=== PATIENT | female | born 1960 | race Caucasian/White ===

== ENCOUNTER 2018-05-18 13:21 | Emergency (ER) | payer MEDICAID, SELFPAY ==
[2018-05-18 13:23] VITALS: BP 141/83; PULSE 96; RESP 16; TEMP 36.9; O2SAT 98; BMI 14.8
--- NOTE | 2018-05-18 13:30 | ED.VISSUMM ---
- ER Visit Summary Date of Service: 05/18/18 Chief Complaint: Palpitations, nausea shortness of breath History of Present Illness: The patient is a 57 F who presents because of anxiety. She reported palpitations, shortness breath nausea. Symptoms are worse prior to presentation. She took half of a diazepam tablet. She thought of taking a second. When asked if she has been sad she began to cry and states she has been depressed for a while. She has had unintentional weight loss which may be secondary to depression or other causes. She also reports poor p.o. intake. She reports trouble with sleep, as well. Patient denies any ocular, visual or auditory symptoms. Patient denies any chest pain. She does have a nonproductive cough which is chronic. She denies any abdominal pain. She denies any urologic symptoms. She states she is always been thin and tiny. When asked how much she smoked she responded too much . Physical Examination: Thin woman with elevated blood pressure of 141/83. She has a depressed affect. She is tearful. She admits she is depressed. HEENT exam unremarkable. Heart is regular without murmur, gallop or rub lungs are clear. Abdomen soft nontender. She is alert she is oriented with a nonfocal neurologic exam. Test Results: CBC and CMP are unremarkable. Emergency Department Course and Treatment: Because she is smoker with unintentional weight loss will obtain screening blood work. Believe this to be secondary to depression. She is presently on no antidepressant. She is not under the care of a psychiatrist. Treatment Plan: Prescription for antidepressant Disposition: Discharge Impression: 1. Depression 2. Anxiety reaction 3. Unintentional weight loss 4. Tobacco abuse This note was generated with [employer] dictation software. It may contain incorrect words, spelling, and punctuation that were not noted in review of the chart prior to signing ED Disposition - Plan for ED Patient: Disposition: Home or Assisted Living Chief Complaint: Anxiety Instructions: ED Depression, ED Stress React Prescriptions: Sertraline HCl [Zoloft] 12.5 mg PO QHS #30 tab Referrals: Smith Espinosa Chi, MD [Primary Care Provider] - 1-2 Weeks Counseling,Center [GROUP OF PHYSICIANS] - 1-2 Weeks
[2018-05-18 14:09] LABS: Absolute Lymphocyte Count 2.03 X10^3/ul (0.83-4.51); Absolute Neutrophil Count 4.1 X10^3/uL (2.0-7.7); Basophil# 0.02 X10^3/uL; Basophil% 0.3 % (0-1); Eosinophil# 0.02 X10^3/uL; Eosinophils% 0.3 % (0-5); Hematocrit 40.7 % (37-47); Hemoglobin 13.6 g/dl (12.0-15.0); Lymphocyte # 2.03 X10^3/ul (4.0); Lymphocyte % 30.2 % (19-41); Mean Corp Hgb Conc 33.4 g/gl (32-36); Mean Corpuscular Hgb 31.8 pg (27.0-32.0); Mean Corpuscular Volume 95.1 fL (81-99); Mean Platelet Vol. 10.1 fl (6.2-12.0); Monocyte# 0.57 X10^3/uL; Monocyte% 8.5 % (0-10); Neutrophil # 4.08 X10^3/uL (2.7-7.7); Neutrophil % 60.7 % (47-70); Platelet Count 269 K/mm3 (150-450); RBC Distribution Width CV 12.8 % (11.6-14.6); RBC Distribution Width SD 44.5 fl (35.1-43.9); Red Blood Count 4.28 M/mm3 (4.2-5.4); White Blood Count 6.7 K/mm3 (4.4-11.0)
[2018-05-18 14:10] LABS: POSITIVE COUNT NO; POSITIVE DIFFERENTIAL NO; POSITIVE MORPHOLOGY NO
[2018-05-18 14:25] LABS: BUN 11 mg/dL (7-18); BUN/Creat Ratio 13.5 RATIO (10-20); Creatinine, Serum 0.81 mg/dL (0.55-1.02); EST Glomerular Filtration Rate 77 mL/min (>60); Est Glom Filt Rate - Afr Amer 94 mL/min (>60); Estimated Creatinine Clearance 49.93 ml/min; Glucose 96 mg/dL (74-106); Protein, Total 7.4 g/dL (6.4-8.2)
[2018-05-18 14:26] LABS: ALB/GLOB Ratio 1.2 RATIO (0.9-2.4); AST(SGOT) 18 U/L (15-37); Alanine Aminotransfer ALT/SGPT 26 U/L (13-56); Alkaline Phosphatase 51 U/L (45-117); Anion Gap 5 (5-15); Calcium,Total 9.1 mg/dL (8.5-10.1); Chloride 109 mmol/L (98-107); Globulin 3.4 g/dL (2.2-4.2); Sodium Level 142 mmol/L (136-145)
[2018-05-18 15:12] VITALS: BP 112/70; PULSE 72; RESP 15; O2SAT 98
== END 2018-05-18 15:12 | disposition home or self-care (01) ==
PROVIDERS: Emergency Provider Emergency Medicine; Family Provider Family Medicine Geriatric Medicine; PCP Family Medicine Geriatric Medicine
DX: F32.9 Major depressive disorder, single episode, unspecified (principal); F41.1 Generalized anxiety disorder; R63.4 Abnormal weight loss; F17.200 Nicotine dependence, unspecified, uncomplicated; Z79.899 Other long term (current) drug therapy
CPT/HCPCS: 80053; 85025; 99285

== ENCOUNTER 2018-06-17 14:53 | Emergency (ER) | payer MEDICAID, SELFPAY ==
[2018-06-17 14:54] VITALS: BP 115/76; PULSE 85; RESP 16; TEMP 36.5; O2SAT 98; BMI 16.9
--- NOTE | 2018-06-17 15:09 | RAD_ITS ---
STUDY: X-RAY - RIGHT HAND, ATTENTION INDEX FINGER REASON FOR EXAM: Female, 57 years old. Injury to the tip of the index finger. TECHNIQUE: 3 view(s) of the finger were obtained. COMPARISON: None. FINDINGS: Normal metacarpal head. Normal metacarpophalangeal joint. Normal proximal phalanx. Normal middle phalanx. Normal distal phalanx. Normal proximal interphalangeal joint. Normal distal interphalangeal joint. Soft tissue injury overlying the tuft of the distal phalanx of the index finger. RAD/Finger(s) Min 2 Views IMPRESSION: Soft tissue injury overlying the tuft of the distal phalanx of the index finger. Electronically Signed: Ayo Gruber MD at 15:33 EDT Tel [phone], Service support ,
--- NOTE | 2018-06-17 15:13 | ED.DCSUM_ITS ---
- ER Visit Summary Date of Service: 06/17/18 Chief Complaint: Right index finger injury History of Present Illness: The patient is a 57 F who got her right index finger crushed by a tailgate just prior to arrival. Unknown last tetanus. Physical Examination: Afebrile vital signs stable Gen: Well-nourished well-developed Head: Normocephalic atraumatic Eyes: Perrl EOMI ENT: TMs clear no rhinorrhea moist mucous membranes Neck: Supple no lymphadenopathy no JVD nontender CVS: Regular rate rhythm no murmurs normal S1-S2 Respiratory: No distress clear to auscultation bilaterally chest nontender Abdomen: Soft nontender nondistended normal bowel sounds no masses Back: Nontender Extremity: Laceration noted to the lateral aspect of the distal right index finger. Neurovascular intact. No active bleeding. No subungual hematoma Skin: Normal color no rash Neuro: alert orientated ?3 CN II-XII intact normal strength sensation reflexes gait cerebellar Psych: Normal affect normal mood Test Results: Finger x-rays were obtained. No fracture seen. Emergency Department Course and Treatment: During the initial history and physical exam the patient underwent digital block using 1% lidocaine using a standard volar approach. Once adequate anesthesia was achieved the wound was washed with Shur-Clens and explored. It was closed using a total of 2 simple interrupted 4-0 Ethilon sutures. Wound dressed with bacitracin and Band-Aid. Follow-up will be in 10 days for suture removal. Impression: 1. Crush injury right index finger 2. 1 cm finger laceration with repair 3. Tetanus update This note was generated with [employer] dictation software. It may contain incorrect words, spelling, and punctuation that were not noted in review of the chart prior to signing ED Disposition - Plan for ED Patient: Disposition: Home or Assisted Living Chief Complaint: Laceration Instructions: ED Laceration Hand Referrals: Smith Espinosa Chi, MD [Primary Care Provider] - 10 Day for suture removal
[2018-06-17] MEDS: Diphth,Pertuss(Acell),Tet Vac 0.5 ML Vial IM (15:40)
[2018-06-17 15:59] VITALS: RESP 12
== END 2018-06-17 16:00 | disposition home or self-care (01) ==
LOC: ED 15:48
PROVIDERS: Emergency Provider Emergency Medicine; Family Provider Family Medicine Geriatric Medicine; PCP Family Medicine Geriatric Medicine
DX: S61.210A Laceration without foreign body of right index finger without damage to nail, initial encounter (principal); Z23 Encounter for immunization; F32.9 Major depressive disorder, single episode, unspecified; Z72.0 Tobacco use; Z79.899 Other long term (current) drug therapy; W23.0XXA Caught, crushed, jammed, or pinched between moving objects, initial encounter; Y93.89 Activity, other specified; Y92.89 Other specified places as the place of occurrence of the external cause; Y99.8 Other external cause status
CPT/HCPCS: 12001; 73140; 90471; 90715; 99283

== ENCOUNTER → 2018-07-28 13:42 | Outpatient (CLI) | payer MEDICAID, SELFPAY ==
[2018-07-28 16:41] LABS: Absolute Lymphocyte Count 2.11 X10^3/ul (0.83-4.51); Basophil# 0.04 X10^3/uL; Basophil% 0.6 % (0-1); Eosinophil# 0.01 X10^3/uL; Eosinophils% 0.1 % (0-5); Hematocrit 42.5 % (37-47); Hemoglobin 14.4 g/dl (12.0-15.0); Lymphocyte # 2.11 X10^3/ul (4.0); Lymphocyte % 29.8 % (19-41); Mean Corp Hgb Conc 33.9 g/gl (32-36); Mean Corpuscular Hgb 32.9 pg (27.0-32.0); Mean Platelet Vol. 12.6 fl (6.2-12.0); Monocyte# 0.88 X10^3/uL; Monocyte% 12.4 % (0-10); Neutrophil # 4.02 X10^3/uL (2.7-7.7); Platelet Count 234 K/mm3 (150-450); RBC Distribution Width CV 13.3 % (11.6-14.6); RBC Distribution Width SD 46.4 fl (35.1-43.9); Red Blood Count 4.38 M/mm3 (4.2-5.4); White Blood Count 7.1 K/mm3 (4.4-11.0)
[2018-07-28 16:47] LABS: POSITIVE COUNT NO; POSITIVE DIFFERENTIAL NO; POSITIVE MORPHOLOGY NO
[2018-07-28 17:03] LABS: ALB/GLOB Ratio 1.1 RATIO (0.9-2.4); AST(SGOT) 20 U/L (15-37); Alanine Aminotransfer ALT/SGPT 30 U/L (13-56); Alkaline Phosphatase 52 U/L (45-117); Anion Gap 9 (5-15); BUN 13 mg/dL (7-18); BUN/Creat Ratio 17.4 RATIO (10-20); Calcium,Total 9.1 mg/dL (8.5-10.1); Chloride 104 mmol/L (98-107); Creatinine, Serum 0.75 mg/dL (0.55-1.02); EST Glomerular Filtration Rate 85 mL/min (>60); Est Glom Filt Rate - Afr Amer 103 mL/min (>60); Globulin 3.7 g/dL (2.2-4.2); Glucose 93 mg/dL (74-106); Potassium 3.9 mmol/L (3.5-5.1); Protein, Total 7.7 g/dL (6.4-8.2); Sodium Level 140 mmol/L (136-145); Thyroid Stim Hormone (TSH) 1.46 uIU/mL (0.358-3.74)
[2018-08-01 11:53] LABS: Hep C Antibodies <0.1 s/co ratio (0.0-0.9)
== END ==
PROVIDERS: Visit Provider Family Medicine Geriatric Medicine
DX: R53.83 Other fatigue (principal); Z13.89 Encounter for screening for other disorder
CPT/HCPCS: 36415; 80053; 84443; 85025; 86803

== ENCOUNTER → 2019-02-21 | Outpatient (CLI) | payer MEDICAID, SELFPAY ==
[2019-02-21 17:30] LABS: Absolute Neutrophil Count 3.5 X10^3/uL (2.0-7.7); Basophil# 0.01 X10^3/uL; Basophil% 0.2 % (0-1); Eosinophil# 0.03 X10^3/uL; Eosinophils% 0.5 % (0-5); Hematocrit 39.7 % (37-47); Hemoglobin 13.4 g/dl (12.0-15.0); Mean Corp Hgb Conc 33.8 g/gl (32-36); Mean Corpuscular Hgb 31.3 pg (27.0-32.0); Mean Corpuscular Volume 92.8 fL (81-99); Monocyte% 10.5 % (0-10); Neutrophil # 3.51 X10^3/uL (2.7-7.7); Neutrophil % 52.6 % (47-70); Platelet Count 254 K/mm3 (150-450); RBC Distribution Width CV 12.6 % (11.6-14.6); RBC Distribution Width SD 41.6 fl (35.1-43.9); Red Blood Count 4.28 M/mm3 (4.2-5.4); White Blood Count 6.7 K/mm3 (4.4-11.0)
[2019-02-21 17:35] LABS: POSITIVE COUNT NO; POSITIVE DIFFERENTIAL NO; POSITIVE MORPHOLOGY NO
[2019-02-21 17:47] LABS: Vitamin D,25 Hydroxy 18.5 ng/mL (29.95-100.01)
[2019-02-21 17:57] LABS: AST(SGOT) 17 U/L (15-37); Alanine Aminotransfer ALT/SGPT 20 U/L (13-56); Albumin, Serum 3.7 g/dL (3.2-5.0); Alkaline Phosphatase 56 U/L (45-117); Anion Gap 6 (5-15); BUN 19 mg/dL (7-18); BUN/Creat Ratio 24.8 RATIO (10-20); Calcium,Total 8.8 mg/dL (8.5-10.1); Chloride 107 mmol/L (98-107); Creatinine, Serum 0.77 mg/dL (0.55-1.02); EST Glomerular Filtration Rate 83 mL/min (>60); Est Glom Filt Rate - Afr Amer 100 mL/min (>60); Globulin 3.7 g/dL (2.2-4.2); Glucose 92 mg/dL (74-106); Protein, Total 7.4 g/dL (6.4-8.2); Sodium Level 139 mmol/L (136-145)
== END | disposition home or self-care (01) ==
LOC: POLAB3 13:33
PROVIDERS: Family Provider Family Medicine Geriatric Medicine; PCP Family Medicine Geriatric Medicine; Visit Provider Family Medicine Geriatric Medicine
DX: E55.9 Vitamin D deficiency, unspecified (principal); R53.83 Other fatigue
CPT/HCPCS: 36415; 80053; 82306; 84443; 85025

== ENCOUNTER → 2019-03-29 | Outpatient (CLI) | payer MEDICAID, SELFPAY ==
[2019-03-29 10:48] VITALS: BMI 16.9
--- NOTE | 2019-03-29 11:17 | BI_ITS ---
MAMMOGRAPHY - BILATERAL SCREENING REASON FOR EXAM: Female, 58 years old. Routine annual screening examination. PERTINENT HISTORY: Aunt with breast cancer. TECHNIQUE: Digital bilateral breast chris (3D mammographic acquisition) in the CC and MLO projections. 2-D mediolateral oblique (MLO) and craniocaudad (CC) views of both breasts were obtained. CAD: Full Field Digital Mammography with Computer Added Detection was performed. COMPARISON: Comparison is made with prior outside examination dated January 04, 2017. FINDINGS: Breast Composition: There are scattered areas of fibroglandular density. There are no dominant masses or suspicious calcifications. There now is evidence of a 9.4 mm left axillary nodule most likely representing a small lymph node. Correlation with ultrasound is recommended. No other significant abnormalities are identified. BI/SCREEN MAMM (CAD) W/CHRIS BILAT IMPRESSION: 9.4 mm well-defined nodule in the left axillary region. Correlation with ultrasound is recommended. ASSESSMENT CATEGORY: BIRADS Category 0: Incomplete. Need additional imaging evaluation. A letter regarding these results will be sent to the patient by the facility within 30 days. Approximately 10% of breast cancers are not detected by mammography. A normal mammogram should not delay biopsy of a clinically suspicious abnormality. [id number] Electronically Signed: Ayo Gruber, at 12:49 EDT , Service support ,
[2019-04-14 11:57] LABS: HPV APTIMA, High Risk Negative (Negative)
== END | disposition home or self-care (01) ==
PROVIDERS: Family Provider Family Medicine Geriatric Medicine; PCP Family Medicine Geriatric Medicine; Referring Provider Obstetrics & Gynecology; Visit Provider Obstetrics & Gynecology
DX: Z12.4 Encounter for screening for malignant neoplasm of cervix (principal); Z12.31 Encounter for screening mammogram for malignant neoplasm of breast
CPT/HCPCS: 77063; 77067; 87624; 88175; G0145

== ENCOUNTER → 2019-03-31 | Outpatient (CLI) | payer MEDICAID, SELFPAY ==
[2019-03-29 10:48] VITALS: BMI 16.9
--- NOTE | 2019-03-31 09:57 | US_ITS ---
STUDY: ULTRASOUND BREAST - LEFT REASON FOR EXAM: Female, 58 years old. Abnormal screening mammogram. TECHNIQUE: Axial and longitudinal images of the LEFT breast were performed with a high resolution ultrasound transducer. COMPARISON: Comparison is made with prior mammogram dated March 29, 2019. FINDINGS: LEFT Breast: There is a 1.8 cm x 0.8 cm x 0.8 cm well-defined hypoechoic nodule with a central hilum of increased echotexture suggestive of a lymph node. US/Breast Limited Unilateral IMPRESSION: Sonographic findings correspond to a benign-appearing lymph node. Routine mammographic follow-up is recommended. ASSESSMENT CATEGORY: BIRADS Category 2: Benign. A letter regarding these results will be sent to the patient by the facility within 30 days. Electronically Signed: Ayo Gruber, at 13:19 EDT , Service support ,
== END | disposition home or self-care (01) ==
LOC: OPUS 09:54
PROVIDERS: Family Provider Family Medicine Geriatric Medicine; PCP Family Medicine Geriatric Medicine; Referring Provider Obstetrics & Gynecology; Visit Provider Obstetrics & Gynecology
DX: R92.8 Other abnormal and inconclusive findings on diagnostic imaging of breast (principal)
CPT/HCPCS: 76642

== ENCOUNTER → 2019-08-01 | Outpatient (CLI) | payer MEDICAID, SELFPAY ==
[2019-08-01 17:56] LABS: Absolute Lymphocyte Count 2.31 X10^3/uL (0.83-4.51); Absolute Neutrophil Count 5.4 X10^3/uL (2.0-7.7); Basophil# 0.03 X10^3/uL; Basophil% 0.4 % (0-1); Eosinophil# 0.01 X10^3/uL; Eosinophils% 0.1 % (0-5); Hematocrit 40.5 % (37-47); Hemoglobin 13.2 g/dL (12.0-15.0); Lymphocyte # 2.31 X10^3/ul (4.0); Lymphocyte % 28.2 % (19-41); Mean Corp Hgb Conc 32.6 g/dL (32-36); Mean Corpuscular Hgb 31.1 pg (27.0-32.0); Mean Corpuscular Volume 95.3 fL (81-99); Monocyte# 0.46 X10^3/uL; Monocyte% 5.6 % (0-10); NRBC Flagged by Analyzer 0 % (0-5); Neutrophil # 5.37 X10^3/uL (2.7-7.7); Neutrophil % 65.5 % (47-70); Platelet Count 242 K/mm3 (150-450); RBC Distribution Width SD 45.1 fl (35.1-43.9); Red Blood Count 4.25 M/mm3 (4.2-5.4); White Blood Count 8.2 K/mm3 (4.4-11.0)
[2019-08-01 18:11] LABS: ALB/GLOB Ratio 1.1 RATIO (0.9-2.4); AST(SGOT) 16 U/L (15-37); Alanine Aminotransfer ALT/SGPT 16 U/L (13-56); Alkaline Phosphatase 56 U/L (45-117); Anion Gap 8 (5-15); BUN 14 mg/dL (7-18); BUN/Creat Ratio 17.7 RATIO (10-20); Chloride 105 mmol/L (98-107); Creatinine, Serum 0.79 mg/dL (0.55-1.02); EST Glomerular Filtration Rate 79 mL/min (>60); Est Glom Filt Rate - Afr Amer 96 mL/min (>60); Globulin 3.6 g/dL (2.2-4.2); Glucose 97 mg/dL (74-106); Potassium 3.6 mmol/L (3.5-5.1); Protein, Total 7.6 g/dL (6.4-8.2); Sodium Level 139 mmol/L (136-145); Thyroid Stim Hormone (TSH) 1.14 uIU/mL (0.358-3.74)
== END | disposition home or self-care (01) ==
LOC: POLAB3 15:57
PROVIDERS: Visit Provider Family Medicine Geriatric Medicine
DX: R53.83 Other fatigue (principal)
CPT/HCPCS: 36415; 80053; 84443; 85025

== ENCOUNTER 2019-09-23 13:50 | Emergency (ER) | payer MEDICAID, SELFPAY ==
[2019-03-29 10:48] VITALS: BMI 16.9
[2019-09-23 13:51] VITALS: BP 132/105; PULSE 130; RESP 24; TEMP 36.7; BMI 18.5
--- NOTE | 2019-09-23 14:11 | ED.DCSUM_ITS ---
History of Present Illness Chief Complaint: Other, Pain/Inj Detail of Chief Complaint: Rectal pain due to hemorrhoids Informant: Patient, Significant Other Onset: Days - Past several days Context: Sudden Onset Timing: Continuous Quality: Pain Location: Anus Current Severity: Mild Maximum Severity: Severe Worsened by: Bowel movement Relieved by: Nothing Associated Symptoms: Occasionally blood on toilet paper Narrative: Patient is a 59-year-old woman who presents with rectal pain. She states she has hemorrhoids. She occasionally notices bright red blood. She has not had hard stool or diarrhea recently. She has no history of liver disease. She has no other complaints Prior similar symptoms: No Recent Illness/Hospitalization: No - Past Medical History (1) No significant past medical history Status: Acute Past Medical History - Allergies and Home Meds Allergies/Adverse Reactions: Allergies ibuprofen Allergy (Verified 09/23/19 13:51) Hives Primary Care Physician: Smith Espinosa Chi, MD [Primary Care Provider] - Prior records reviewed: Yes Surgical History: noncontributory Lives: Spouse/ Significant Other Smoking Status: Current every day smoker Alcohol: None Drugs: None Review of Systems General: Denies: Chills, Fever, Malaise, Subjective, Sweats Gastrointestinal: Denies: Abdominal pain, Nausea, Vomiting, Diarrhea, Constipation, Melena, Hematochezia Genitourinary: Denies: Dysuria, Hematuria, Frequency Musculoskeletal: Denies: Myalgias, Arthralgias, Neck pain, Back pain, Swelling, Extremity Pain, -, - Hematologic: Denies: Easy bruising, Easy bleeding Physical Exam Vital Signs/Narrative: Vital Signs Temp Pulse Resp BP 09/23/19 13:51 98.1 F 130 H 24 H 132/105 H Inital Vital Signs reviewed: Yes General: Well nourished, Well developed, - - And appears uncomfortable Head: Normocephalic, Atraumatic Eyes: Perrl, EOMI. Negative for: Pale conjunctiva, Scleral icterus ENT: Moist mucous membranes, No rhinorrhea Neck: Supple, Nontender Cardiovascular: Regular rate, Regular rhythm, No murmurs, Normal S1, Normal S2, Tachycardia Abdomen: Soft, Nontender, Nondistended, Normal bowel sounds Rectal: - - There is a cluster of hemorrhoids noted. There is no thrombosed hemorrhoid based on exam. Patient has significant pain out of proportion. Rectal exam reveals no fluctuance or warmth. Stool is brown. Back: Nontender, Normal Inspection Extremities: Nontender, No edema Skin: Normal color, No rash Neurological: Alert, Oriented x3, Cranial nerves II-XII grossly intact, Normal Strength, Normal Sensation Psychological: Normal affect, Normal Mood Diagnostic/Tx/Re-eval 09/23/19 14:34 CT Pel [Pelvis WITH IV Contrast] [CT] Stat Laboratory Results 09/23/19 09/23/19 14:53 14:53 WBC 9.7 RBC 4.66 Hgb 14.3 Hct 42.3 MCV 90.8 MCH 30.7 MCHC 33.8 RDW Std Deviation 42.5 RDW Coeff of Joe 12.9 Plt Count 266 MPV 10.8 Immature Gran % (Auto) 0.200 Neut % (Auto) 66.8 Lymph % (Auto) 26.2 Bates % (Auto) 6.3 Eos % (Auto) 0.3 Baso % (Auto) 0.2 Absolute Neuts (auto) 6.5 Absolute Lymphs (auto) 2.53 Nucleated RBC % 0 Sodium 140 Potassium 4.0 Chloride 107 Carbon Dioxide 26.0 Anion Gap 7 BUN 11 Creatinine 0.83 Estim Creat Clear Calc 52.42 Est GFR (MDRD) Af Amer 91 Est GFR (MDRD) Non-Af 76 BUN/Creatinine Ratio 13.3 Glucose 88 Calcium 9.4 CBC and basic metabolic panel are unremarkable. CT of the pelvis with IV contrast is pending. [facility] Judson Mess[facility]. - Medical Decision Making Patient with cluster of hemorrhoids causing her pain. Concern patient is ta chypneic and tachycardic. There is no fluctuance or warmth to suggest rectal abscess. Since she has seen Dr. Esparza, he was paged. Because of the severe tenderness tachycardia and tachypnea he recommended CBC and CT of the pelvis with IV contrast. This may represent a ischio-rectal abscess. Medicated with IV morphine for the pain. Patient was reassessed. Her pain is improved markedly. CBC and basic metabolic panel are normal. Patient awaiting scan. ED Disposition - Plan for ED Patient: Referrals: Smith Espinosa Chi, MD [Primary Care Provider] -
--- NOTE | 2019-09-23 14:34 | CT_ITS ---
STUDY: CT PELVIS WITH CONTRAST REASON FOR EXAM: Female, 59 years old. RECTAL PAIN RADIATION DOSAGE (If Supplied By Facility): CTDIvol = ( 17.01 ) mGy, DLP = ( 526.71 ) mGycm TECHNIQUE: Transaxial imaging of the pelvis was performed without oral contrast. IV 100mL Isovue-300 was administered intravenously. Multiplanar coronal and sagittal images were reformatted. Individualized dose optimization techniques were used for this CT. COMPARISON: None. FINDINGS: Normal urinary bladder. Normal visualized small intestine. There is colonic fecal retention of the visualized colon, particularly the rectal vault. No perirectal stranding or focal fluid collection identified. Ischio rectal fat is clear bilaterally. There is no pelvic fluid. There is no pelvic lymphadenopathy or mass lesion. Normal visualized uterus. Tubal ligation surgical clips are noted. Normal visualized pelvic arteries. Normal abdominal wall. There are diffuse degenerative changes of the visualized lumbar spine. CT/Pelvis WITH IV Contrast IMPRESSION: 1. Fecal retention within the rectal vault but no perirectal stranding or focal fluid collection. Electronically Signed: Hunter Gregory MD (Brooks) at 15:58 EST , Service support ,
[2019-09-23] MEDS: Morphine 4 MG/ML Syringe IV (14:56)
[2019-09-23 15:04] LABS: Absolute Lymphocyte Count 2.53 X10^3/uL (0.83-4.51); Absolute Neutrophil Count 6.5 X10^3/uL (2.0-7.7); Basophil# 0.02 X10^3/uL; Basophil% 0.2 % (0-1); Eosinophil# 0.03 X10^3/uL; Eosinophils% 0.3 % (0-5); Hematocrit 42.3 % (37-47); Hemoglobin 14.3 g/dL (12.0-15.0); Lymphocyte # 2.53 X10^3/ul (4.0); Lymphocyte % 26.2 % (19-41); Mean Corp Hgb Conc 33.8 g/dL (32-36); Mean Corpuscular Hgb 30.7 pg (27.0-32.0); Mean Corpuscular Volume 90.8 fL (81-99); Mean Platelet Vol. 10.8 fl (6.2-12.0); Monocyte# 0.61 X10^3/uL; Monocyte% 6.3 % (0-10); NRBC Flagged by Analyzer 0 % (0-5); Neutrophil # 6.45 X10^3/uL (2.7-7.7); Neutrophil % 66.8 % (47-70); Platelet Count 266 K/mm3 (150-450); RBC Distribution Width CV 12.9 % (11.6-14.6); RBC Distribution Width SD 42.5 fl (35.1-43.9); Red Blood Count 4.66 M/mm3 (4.2-5.4); White Blood Count 9.7 K/mm3 (4.4-11.0)
[2019-09-23 15:18] LABS: Anion Gap 7 (5-15); BUN 11 mg/dL (7-18); BUN/Creat Ratio 13.3 RATIO (10-20); Calcium,Total 9.4 mg/dL (8.5-10.1); Chloride 107 mmol/L (98-107); Creatinine, Serum 0.83 mg/dL (0.55-1.02); EST Glomerular Filtration Rate 76 mL/min (>60); Est Glom Filt Rate - Afr Amer 91 mL/min (>60); Estimated Creatinine Clearance 52.42 ml/min; Glucose 88 mg/dL (74-106); Sodium Level 140 mmol/L (136-145)
--- NOTE | 2019-09-23 16:16 | ED.DEP ---
ED Disposition - Plan for ED Patient: Instructions: Hemorrhoids Prescriptions: Docusate Sodium [Colace] 100 mg PO DAILY #20 cap Prescription Printed Referrals: Sanford Esparza MD [STAFF PHYSICIAN] -
[2019-09-23 16:32] VITALS: PULSE 80
[2019-09-23] MEDS: HYDROcodone Bitartrate/Apap 5/325 Tablet PO (16:32)
== END 2019-09-23 16:35 | disposition home or self-care (01) ==
LOC: ED 14:27
PROVIDERS: Emergency Provider Emergency Medicine; Family Provider Family Medicine Geriatric Medicine; PCP Family Medicine Geriatric Medicine
DX: K64.9 Unspecified hemorrhoids (principal); R00.0 Tachycardia, unspecified; R06.82 Tachypnea, not elsewhere classified; F17.200 Nicotine dependence, unspecified, uncomplicated; Z79.899 Other long term (current) drug therapy
CPT/HCPCS: 72193; 80048; 85025; 96374; 99283; J7030; Q9967; A4216

== ENCOUNTER → 2020-02-22 | Outpatient (CLI) | payer MEDICAID, SELFPAY ==
[2020-02-22 16:48] LABS: Absolute Lymphocyte Count 2.57 X10^3/uL (0.83-4.51); Absolute Neutrophil Count 3.8 X10^3/uL (2.0-7.7); Basophil# 0.03 X10^3/uL; Basophil% 0.4 % (0-1); Eosinophil# 0.04 X10^3/uL; Eosinophils% 0.5 % (0-5); Hemoglobin 14.1 g/dL (12.0-15.0); Lymphocyte # 2.57 X10^3/ul (4.0); Lymphocyte % 35.3 % (19-41); Mean Corp Hgb Conc 33.6 g/dL (32-36); Mean Corpuscular Hgb 31.8 pg (27.0-32.0); Mean Corpuscular Volume 94.8 fL (81-99); Mean Platelet Vol. 11.9 fl (6.2-12.0); Monocyte# 0.79 X10^3/uL; Monocyte% 10.9 % (0-10); NRBC Flagged by Analyzer 0 % (0-5); Neutrophil # 3.84 X10^3/uL (2.7-7.7); Neutrophil % 52.8 % (47-70); Platelet Count 290 K/mm3 (150-450); RBC Distribution Width CV 12.2 % (11.6-14.6); RBC Distribution Width SD 42.7 fl (35.1-43.9); Red Blood Count 4.43 M/mm3 (4.2-5.4); White Blood Count 7.3 K/mm3 (4.4-11.0)
[2020-02-22 17:26] LABS: ALB/GLOB Ratio 1.1 RATIO (0.9-2.4); AST(SGOT) 18 U/L (15-37); Alanine Aminotransfer ALT/SGPT 23 U/L (13-56); Albumin, Serum 3.9 g/dL (3.2-5.0); Alkaline Phosphatase 60 U/L (45-117); Anion Gap 7 (5-15); BUN 16 mg/dL (7-18); BUN/Creat Ratio 19.3 RATIO (10-20); Calcium,Total 9.2 mg/dL (8.5-10.1); Chloride 104 mmol/L (98-107); Creatinine, Serum 0.83 mg/dL (0.55-1.02); EST Glomerular Filtration Rate 75 mL/min (>60); Est Glom Filt Rate - Afr Amer 91 mL/min (>60); Globulin 3.7 g/dL (2.2-4.2); Glucose 85 mg/dL (74-106); Potassium 3.7 mmol/L (3.5-5.1); Protein, Total 7.6 g/dL (6.4-8.2); Sodium Level 137 mmol/L (136-145); Thyroid Stim Hormone (TSH) 1.48 uIU/mL (0.358-3.74)
== END | disposition home or self-care (01) ==
LOC: POLAB3 15:44
PROVIDERS: PCP Family Medicine Geriatric Medicine; Visit Provider Family Medicine Geriatric Medicine
DX: R53.83 Other fatigue (principal)
CPT/HCPCS: 36415; 80053; 84443; 85025

== ENCOUNTER → 2020-08-06 13:36 | Outpatient (CLI) | payer MEDICAID, SELFPAY ==
[2020-08-06 14:32] LABS: Absolute Lymphocyte Count 2.34 X10^3/uL (0.83-4.51); Absolute Neutrophil Count 5.2 X10^3/uL (2.0-7.7); Basophil# 0.03 X10^3/uL; Basophil% 0.4 % (0-1); Eosinophil# 0.02 X10^3/uL; Eosinophils% 0.2 % (0-5); Hematocrit 41.8 % (37-47); Lymphocyte # 2.34 X10^3/ul (4.0); Lymphocyte % 28.6 % (19-41); Mean Corp Hgb Conc 33.5 g/dL (32-36); Mean Corpuscular Hgb 32.3 pg (27.0-32.0); Mean Corpuscular Volume 96.5 fL (81-99); Mean Platelet Vol. 11.5 fl (6.2-12.0); Monocyte% 7.3 % (0-10); NRBC Flagged by Analyzer 0 % (0-5); Neutrophil # 5.15 X10^3/uL (2.7-7.7); Neutrophil % 63.1 % (47-70); Platelet Count 317 K/mm3 (150-450); RBC Distribution Width CV 13.2 % (11.6-14.6); Red Blood Count 4.33 M/mm3 (4.2-5.4); White Blood Count 8.2 K/mm3 (4.4-11.0)
[2020-08-06 14:45] LABS: Vitamin D,25 Hydroxy 21.7 ng/mL
[2020-08-06 14:52] LABS: AST(SGOT) 19 U/L (15-37); Alanine Aminotransfer ALT/SGPT 28 U/L (13-56); Albumin, Serum 4.1 g/dL (3.2-5.0); Alkaline Phosphatase 68 U/L (45-117); Anion Gap 5 (5-15); BUN 12 mg/dL (7-18); BUN/Creat Ratio 14.7 RATIO (10-20); Calcium,Total 9.5 mg/dL (8.5-10.1); Chloride 107 mmol/L (98-107); Creatinine, Serum 0.82 mg/dL (0.55-1.02); EST Glomerular Filtration Rate 76 mL/min (>60); Est Glom Filt Rate - Afr Amer 92 mL/min (>60); Glucose 90 mg/dL (74-106); Potassium 3.9 mmol/L (3.5-5.1); Protein, Total 8.1 g/dL (6.4-8.2); Sodium Level 140 mmol/L (136-145); Thyroid Stim Hormone (TSH) 2.21 uIU/mL (0.358-3.74)
== END ==
PROVIDERS: PCP Family Medicine Geriatric Medicine; Referring Provider Family Medicine Geriatric Medicine; Visit Provider Family Medicine Geriatric Medicine
DX: E55.9 Vitamin D deficiency, unspecified (principal); R53.83 Other fatigue
CPT/HCPCS: 36415; 80053; 82306; 84443; 85025

== ENCOUNTER → 2021-04-24 13:41 | Outpatient (CLI) | payer MEDICAID, SELFPAY ==
[2021-04-24 15:17] LABS: Absolute Lymphocyte Count 2.51 X10^3/uL (0.83-4.51); Absolute Neutrophil Count 4.4 X10^3/uL (2.0-7.7); Basophil# 0.02 X10^3/uL; Basophil% 0.3 % (0-1); Eosinophil# 0.03 X10^3/uL; Eosinophils% 0.4 % (0-5); Hematocrit 41.4 % (37-47); Hemoglobin 14.1 g/dL (12.0-15.0); Lymphocyte # 2.51 X10^3/ul (0.83-4.51); Lymphocyte % 33.1 % (19-41); Mean Corp Hgb Conc 34.1 g/dL (32-36); Mean Corpuscular Hgb 32.3 pg (27.0-32.0); Monocyte# 0.61 X10^3/uL; NRBC Flagged by Analyzer 0 % (0-5); Neutrophil # 4.41 X10^3/uL (2.7-7.7); Neutrophil % 58.1 % (47-70); Platelet Count 278 K/mm3 (150-450); RBC Distribution Width CV 12.7 % (11.6-14.6); Red Blood Count 4.36 M/mm3 (4.2-5.4); White Blood Count 7.6 K/mm3 (4.4-11.0)
[2021-04-24 16:04] LABS: ALB/GLOB Ratio 1.1 RATIO (0.9-2.4); AST(SGOT) 20 U/L (15-37); Alanine Aminotransfer ALT/SGPT 30 U/L (13-56); Alkaline Phosphatase 53 U/L (45-117); Anion Gap 7 (5-15); BUN 15 mg/dL (7-18); BUN/Creat Ratio 24.6 RATIO (10-20); Calcium,Total 9.2 mg/dL (8.5-10.1); Chloride 107 mmol/L (98-107); Creatinine, Serum 0.61 mg/dL (0.55-1.02); EST Glomerular Filtration Rate 107 mL/min (>60); Est Glom Filt Rate - Afr Amer 129 mL/min (>60); Globulin 3.5 g/dL (2.2-4.2); Glucose 90 mg/dL (74-106); Protein, Total 7.5 g/dL (6.4-8.2); Sodium Level 137 mmol/L (136-145); Thyroid Stim Hormone (TSH) 1.15 uIU/mL (0.358-3.74)
== END ==
PROVIDERS: PCP Family Medicine Geriatric Medicine; Visit Provider Family Medicine Geriatric Medicine
DX: R53.83 Other fatigue (principal)
CPT/HCPCS: 36415; 80053; 84443; 85025

== ENCOUNTER → 2022-06-22 | Outpatient (CLI) | payer MEDICAID, SELFPAY ==
[2022-06-22 12:22] LABS: Absolute Lymphocyte Count 2.52 X10^3/uL (0.83-4.51); Absolute Neutrophil Count 3.9 X10^3/uL (2.0-7.7); Basophil# 0.03 X10^3/uL; Basophil% 0.4 % (0-1); Eosinophil# 0.02 X10^3/uL; Eosinophils% 0.3 % (0-5); Hematocrit 40.4 % (37-47); Hemoglobin 13.9 g/dL (12.0-15.0); Lymphocyte # 2.52 X10^3/ul (0.83-4.51); Lymphocyte % 35.8 % (19-41); Mean Corp Hgb Conc 34.4 g/dL (32-36); Mean Corpuscular Hgb 33.2 pg (27.0-32.0); Mean Corpuscular Volume 96.4 fL (81-99); Mean Platelet Vol. 10.9 fl (6.2-12.0); Monocyte# 0.55 X10^3/uL; Monocyte% 7.8 % (0-10); NRBC Flagged by Analyzer 0 % (0-5); Neutrophil % 55.4 % (47-70); Platelet Count 292 K/mm3 (150-450); RBC Distribution Width CV 12.2 % (11.6-14.6); RBC Distribution Width SD 43.2 fl (35.1-43.9); Red Blood Count 4.19 M/mm3 (4.2-5.4)
[2022-06-22 13:04] LABS: ALB/GLOB Ratio 1.2 RATIO (0.9-2.4); AST(SGOT) 21 U/L (15-37); Alanine Aminotransfer ALT/SGPT 28 U/L (13-56); Alkaline Phosphatase 52 U/L (45-117); Anion Gap 8 (5-15); BUN 20 mg/dL (7-18); BUN/Creat Ratio 25.5 RATIO (10-20); Calcium,Total 9.8 mg/dL (8.5-10.1); Chloride 106 mmol/L (98-107); Creatinine, Serum 0.78 mg/dL (0.55-1.02); EST Glomerular Filtration Rate 80 mL/min (>60); Est Glom Filt Rate - Afr Amer 97 mL/min (>60); Globulin 3.4 g/dL (2.2-4.2); Glucose 92 mg/dL (74-106); Protein, Total 7.4 g/dL (6.4-8.2); Sodium Level 140 mmol/L (136-145); Thyroid Stim Hormone (TSH) 1.38 uIU/mL (0.358-3.74)
== END | disposition home or self-care (01) ==
LOC: POLAB3 10:06
PROVIDERS: PCP Family Medicine Geriatric Medicine; Visit Provider Family Medicine Geriatric Medicine
DX: R53.83 Other fatigue (principal)
CPT/HCPCS: 36415; 80053; 84443; 85025

== ENCOUNTER → 2022-09-02 | Outpatient (CLI) | payer MEDICAID, SELFPAY ==
[2022-09-02 17:23] LABS: Absolute Lymphocyte Count 2.67 X10^3/uL (0.83-4.51); Basophil# 0.03 X10^3/uL; Basophil% 0.4 % (0-1); Eosinophil# 0.06 X10^3/uL; Eosinophils% 0.8 % (0-5); Hematocrit 41.2 % (37-47); Hemoglobin 13.7 g/dL (12.0-15.0); Lymphocyte # 2.67 X10^3/ul (0.83-4.51); Lymphocyte % 35.7 % (19-41); Mean Corp Hgb Conc 33.3 g/dL (32-36); Mean Corpuscular Hgb 32.2 pg (27.0-32.0); Mean Corpuscular Volume 96.9 fL (81-99); Mean Platelet Vol. 11.6 fl (6.2-12.0); Monocyte# 0.69 X10^3/uL; Monocyte% 9.2 % (0-10); NRBC Flagged by Analyzer 0 % (0-5); Neutrophil % 53.5 % (47-70); Platelet Count 319 K/mm3 (150-450); RBC Distribution Width CV 12.8 % (11.6-14.6); RBC Distribution Width SD 45.8 fl (35.1-43.9); Red Blood Count 4.25 M/mm3 (4.2-5.4); White Blood Count 7.5 K/mm3 (4.4-11.0)
[2022-09-02 18:19] LABS: ALB/GLOB Ratio 1.1 RATIO (0.9-2.4); AST(SGOT) 18 U/L (15-37); Alanine Aminotransfer ALT/SGPT 27 U/L (13-56); Albumin, Serum 3.9 g/dL (3.2-5.0); Alkaline Phosphatase 61 U/L (45-117); Anion Gap 8 (5-15); BUN 17 mg/dL (7-18); BUN/Creat Ratio 23.8 RATIO (10-20); Calcium,Total 9.4 mg/dL (8.5-10.1); Chloride 104 mmol/L (98-107); Creatinine, Serum 0.71 mg/dL (0.55-1.02); EST Glomerular Filtration Rate 89 mL/min (>60); Est Glom Filt Rate - Afr Amer 107 mL/min (>60); Globulin 3.5 g/dL (2.2-4.2); Glucose 75 mg/dL (74-106); Potassium 3.4 mmol/L (3.5-5.1); Protein, Total 7.4 g/dL (6.4-8.2); Sodium Level 139 mmol/L (136-145); Thyroid Stim Hormone (TSH) 2.93 uIU/mL (0.358-3.74)
== END | disposition home or self-care (01) ==
PROVIDERS: PCP Family Medicine Geriatric Medicine; Visit Provider Family Medicine Geriatric Medicine
DX: R53.83 Other fatigue (principal)
CPT/HCPCS: 36415; 80053; 84443; 85025

== ENCOUNTER → 2023-03-22 | Outpatient (CLI) | payer MEDICAID, SELFPAY ==
[2023-03-22 13:01] LABS: Absolute Neutrophil Count 4.7 X10^3/uL (2.0-7.7); Basophil# 0.03 X10^3/uL; Basophil% 0.4 % (0-1); Eosinophil# 0.03 X10^3/uL; Eosinophils% 0.4 % (0-5); Hematocrit 40.2 % (37-47); Hemoglobin 13.5 g/dL (12.0-15.0); Lymphocyte % 27.9 % (19-41); Mean Corp Hgb Conc 33.6 g/dL (32-36); Mean Corpuscular Hgb 32.5 pg (27.0-32.0); Mean Corpuscular Volume 96.6 fL (81-99); Mean Platelet Vol. 10.3 fl (6.2-12.0); Monocyte# 0.69 X10^3/uL; Monocyte% 9.2 % (0-10); NRBC Flagged by Analyzer 0 % (0-5); Neutrophil # 4.66 X10^3/uL (2.7-7.7); Neutrophil % 61.8 % (47-70); Platelet Count 307 K/mm3 (150-450); RBC Distribution Width CV 12.6 % (11.6-14.6); RBC Distribution Width SD 45.1 fl (35.1-43.9); Red Blood Count 4.16 M/mm3 (4.2-5.4); White Blood Count 7.5 K/mm3 (4.4-11.0)
[2023-03-22 13:41] LABS: ALB/GLOB Ratio 0.9 RATIO (0.9-2.4); AST(SGOT) 18 U/L (15-37); Alanine Aminotransfer ALT/SGPT 21 U/L (13-56); Albumin, Serum 3.5 g/dL (3.2-5.0); Alkaline Phosphatase 65 U/L (45-117); Anion Gap 4 (5-15); BUN 12 mg/dL (7-18); BUN/Creat Ratio 16.5 RATIO (10-20); Calcium,Total 9.2 mg/dL (8.5-10.1); Chloride 108 mmol/L (98-107); Cholesterol 195 mg/dL (200); Creatinine, Serum 0.73 mg/dL (0.55-1.02); EST Glomerular Filtration Rate 87 mL/min (>60); Est Glom Filt Rate - Afr Amer 105 mL/min (>60); Globulin 3.9 g/dL (2.2-4.2); Glucose 89 mg/dL (74-106); High Density Lipoprotein 53 mg/dL; Protein, Total 7.4 g/dL (6.4-8.2); Sodium Level 138 mmol/L (136-145); Triglycerides 199 mg/dL; Very Low Density Lipoprotein 40 mg/dL (5-40)
== END | disposition home or self-care (01) ==
LOC: LAB 12:33
PROVIDERS: PCP Family Medicine Geriatric Medicine; Referring Provider Family Medicine Geriatric Medicine; Visit Provider Family Medicine Geriatric Medicine
DX: R53.83 Other fatigue (principal)
CPT/HCPCS: 36415; 80053; 80061; 84443; 85025

== ENCOUNTER → 2023-09-15 | Outpatient (CLI) | payer MEDICAID, SELFPAY ==
[2023-09-15 16:59] LABS: Absolute Lymphocyte Count 2.84 X10^3/uL (0.83-4.51); Absolute Neutrophil Count 4.5 X10^3/uL (2.0-7.7); Basophil# 0.03 X10^3/uL; Basophil% 0.4 % (0-1); Eosinophil# 0.06 X10^3/uL; Eosinophils% 0.7 % (0-5); Hematocrit 37.2 % (37-47); Hemoglobin 12.5 g/dL (12.0-15.0); Lymphocyte # 2.84 X10^3/ul (0.83-4.51); Lymphocyte % 35.1 % (19-41); Mean Corp Hgb Conc 33.6 g/dL (32-36); Mean Corpuscular Hgb 31.3 pg (27.0-32.0); Mean Platelet Vol. 10.7 fl (6.2-12.0); Monocyte# 0.68 X10^3/uL; Monocyte% 8.4 % (0-10); NRBC Flagged by Analyzer 0 % (0-5); Neutrophil # 4.47 X10^3/uL (2.7-7.7); Neutrophil % 55.2 % (47-70); Platelet Count 394 K/mm3 (150-450); RBC Distribution Width CV 13.1 % (11.6-14.6); RBC Distribution Width SD 44.9 fl (35.1-43.9); White Blood Count 8.1 K/mm3 (4.4-11.0)
[2023-09-15 17:21] LABS: ALB/GLOB Ratio 0.9 RATIO (0.9-2.4); AST(SGOT) 17 U/L (15-37); Alanine Aminotransfer ALT/SGPT 18 U/L (13-56); Albumin, Serum 3.5 g/dL (3.2-5.0); Alkaline Phosphatase 70 U/L (45-117); Anion Gap 6 (5-15); BUN 16 mg/dL (7-18); BUN/Creat Ratio 20.3 RATIO (10-20); Calcium,Total 9.2 mg/dL (8.5-10.1); Chloride 108 mmol/L (98-107); Cholesterol 203 mg/dL (200); Creatinine, Serum 0.79 mg/dL (0.55-1.02); EST Glomerular Filtration Rate 79 mL/min (>60); Est Glom Filt Rate - Afr Amer 95 mL/min (>60); Globulin 4.1 g/dL (2.2-4.2); Glucose 111 mg/dL (74-106); High Density Lipoprotein 47 mg/dL; Potassium 4.2 mmol/L (3.5-5.1); Protein, Total 7.6 g/dL (6.4-8.2); Sodium Level 141 mmol/L (136-145); Thyroid Stim Hormone (TSH) 1.35 uIU/mL (0.358-3.74); Triglycerides 195 mg/dL; Very Low Density Lipoprotein 39 mg/dL (5-40)
== END | disposition home or self-care (01) ==
LOC: POLAB3 15:47
PROVIDERS: PCP Family Medicine Geriatric Medicine; Visit Provider Family Medicine Geriatric Medicine
DX: R53.83 Other fatigue (principal)
CPT/HCPCS: 36415; 80053; 80061; 84443; 85025

== ENCOUNTER → 2024-04-27 | Outpatient (CLI) | payer MEDICAID, SELFPAY ==
[2024-04-27 15:07] LABS: Absolute Lymphocyte Count 2.43 X10^3/uL (0.83-4.51); Absolute Neutrophil Count 5.2 X10^3/uL (2.0-7.7); Basophil# 0.03 X10^3/uL; Basophil% 0.4 % (0-1); Eosinophil# 0.08 X10^3/uL; Eosinophils% 0.9 % (0-5); Hematocrit 39.4 % (37-47); Lymphocyte # 2.43 X10^3/ul (0.83-4.51); Lymphocyte % 28.6 % (19-41); Mean Corpuscular Hgb 30.4 pg (27.0-32.0); Mean Corpuscular Volume 92.3 fL (81-99); Mean Platelet Vol. 10.4 fl (6.2-12.0); Monocyte# 0.73 X10^3/uL; Monocyte% 8.6 % (0-10); NRBC Flagged by Analyzer 0 % (0-5); Neutrophil # 5.21 X10^3/uL (2.7-7.7); Neutrophil % 61.3 % (47-70); Platelet Count 410 K/mm3 (150-450); RBC Distribution Width CV 13.5 % (11.6-14.6); RBC Distribution Width SD 45.6 fl (35.1-43.9); Red Blood Count 4.27 M/mm3 (4.2-5.4); White Blood Count 8.5 K/mm3 (4.4-11.0)
[2024-04-27 15:51] LABS: ALB/GLOB Ratio 0.8 RATIO (0.9-2.4); AST(SGOT) 21 U/L (15-37); Alanine Aminotransfer ALT/SGPT 19 U/L (13-56); Albumin, Serum 3.6 g/dL (3.2-5.0); Alkaline Phosphatase 67 U/L (45-117); Anion Gap 6 (5-15); BUN 9 mg/dL (7-18); BUN/Creat Ratio 13.1 RATIO (10-20); Calcium,Total 9.2 mg/dL (8.5-10.1); Chloride 104 mmol/L (98-107); Cholesterol 216 mg/dL (200); Creatinine, Serum 0.69 mg/dL (0.55-1.02); EST Glomerular Filtration Rate 92 mL/min (>60); Est Glom Filt Rate - Afr Amer 111 mL/min (>60); Globulin 4.3 g/dL (2.2-4.2); Glucose 90 mg/dL (74-106); High Density Lipoprotein 58 mg/dL; Potassium 3.8 mmol/L (3.5-5.1); Protein, Total 7.9 g/dL (6.4-8.2); Sodium Level 136 mmol/L (136-145); Thyroid Stim Hormone (TSH) 2.03 uIU/mL (0.358-3.74); Triglycerides 107 mg/dL; Very Low Density Lipoprotein 21 mg/dL (5-40)
== END | disposition home or self-care (01) ==
LOC: POLAB3 14:12
PROVIDERS: PCP Family Medicine Geriatric Medicine; Visit Provider Family Medicine Geriatric Medicine
DX: R53.83 Other fatigue (principal); E78.5 Hyperlipidemia, unspecified
CPT/HCPCS: 36415; 80053; 80061; 84443; 85025

== ENCOUNTER → 2024-07-12 | Outpatient (CLI) | payer MEDICAID, SELFPAY | END | disposition home or self-care (01) | LOC: POLAB3 14:54 | PROVIDERS: PCP Family Medicine Geriatric Medicine; Visit Provider Family Medicine Geriatric Medicine | DX: R68.83 Chills (without fever) (principal) | CPT/HCPCS: 87631 ==

== ENCOUNTER 2024-08-02 07:38 | Inpatient (IN) | payer MEDICAID, SELFPAY ==
[2024-08-02] VITALS (14 sets, daily range): BP systolic 115–139; BP diastolic 67–90; PULSE 88–127; RESP 16–26; TEMP 36.4–37.1; O2SAT 92–97; BMI 15.6; BMI 16.5
--- NOTE | 2024-08-02 07:44 | EKG12_ITS ---
Test Reason : CP Blood Pressure : */* mmHG Vent. Rate : 117 BPM Atrial Rate : 117 BPM P-R Int : 128 ms QRS Dur : 78 ms QT Int : 326 ms P-R-T Axes : * -86 -76 degrees QTcB Int : 454 ms Sinus tachycardia Left axis deviation Abnormal ECG Confirmed by Abiel Dunham ([id number]), fashion editor ROBLES JACKSON ([id number]) on 08/03/2024 9:54:40 AM Referred By: Confirmed By: Abiel Dunham
[2024-08-02 08:02] LABS: Absolute Lymphocyte Count 2.13 X10^3/uL (0.83-4.51); Absolute Neutrophil Count 7.6 X10^3/uL (2.0-7.7); Basophil# 0.04 X10^3/uL; Basophil% 0.3 % (0-1); Eosinophil# 0.58 X10^3/uL; Hematocrit 38.6 % (37-47); Lymphocyte # 2.13 X10^3/ul (0.83-4.51); Lymphocyte % 18.5 % (19-41); Mean Corp Hgb Conc 33.7 g/dL (32-36); Mean Corpuscular Hgb 30.9 pg (27.0-32.0); Mean Corpuscular Volume 91.7 fL (81-99); Mean Platelet Vol. 9.8 fl (6.2-12.0); Monocyte# 1.11 X10^3/uL; Monocyte% 9.7 % (0-10); NRBC Flagged by Analyzer 0 % (0-5); Neutrophil # 7.58 X10^3/uL (2.7-7.7); Platelet Count 388 K/mm3 (150-450); RBC Distribution Width CV 13.3 % (11.6-14.6); RBC Distribution Width SD 44.3 fl (35.1-43.9); Red Blood Count 4.21 M/mm3 (4.2-5.4); White Blood Count 11.5 K/mm3 (4.4-11.0)
--- NOTE | 2024-08-02 08:05 | EX.ED.DYSGE1 ---
HPI History of Present Illness Chief Complaint: Chest Pain Narrative Narrative: Patient is a 64-year-old female with past medical history of anxiety, depression who presented to the emergency department the chief complaint of chest pain, coughing up blood. States that she had been sick for the past few days and noted that she had chest pain and start coughing up blood yesterday late evening. States that she coughed up blood approximately 3 times. Patient denies any blood thinning medications. Patient denies any history of blood clots denies any recent travel history. Patient states that several family numbers have been sick with upper respiratory symptoms but does not have any similar symptoms to her with the coughing of blood aspect. Patient states that she had been constipated for the last several days and states that she took a laxative and noted that she had a good bowel movement yesterday noted that is dark in nature. Patient denies any NSAID use and states that she is takes Tylenol for pain control. Patient states that she also took Pepto-Bismol past few days as well for an upset stomach. Patient denies any previous abdominal surgeries. Patient states that she has occasional alcohol use socially [facility] Medical History Depression Anxiety Home Medications ?Medication ?Instructions ?Recorded ?Last Taken ?Type diazepam 5 mg tablet 2.5 mg PO BID 05/18/18 06/17/18 History docusate sodium 100 mg capsule 100 mg PO DAILY #20 caps 09/23/19 Unknown Rx Allergy/AdvReac Type Severity Reaction Status Date / Time ibuprofen Allergy Hives Verified 08/02/24 07:41 Family History Father CVA (cerebral vascular accident) Myocardial infarction Mother CVA (cerebral vascular accident) Brain aneurysm Surgical History Encounter for Essure implantation History of tonsillectomy Social History Smoking Status: Current every day smoker tobacco type: cigarettes alcohol intake: current details: social substance use type: does not use and marijuana caffeine: Yes what type of physical activity do you participate in: walking seatbelt use: always do you feel safe at home: Yes additional social history: [place]- Disabled Patient stays at home ROS ROS ED ROS Narrative Constitutional: Denies any fevers, chills, headaches, lightness, dizziness Eyes: Denies change in vision double vision blurry vision Cardiovascular: Complains of chest pain as noted above denies palpitations Respiratory: Complains of coughing and coughing of blood as noted above denies shortness of breath Abdomen: Complains of some abdominal discomfort as well denies nausea vomiting diarrhea : Denies any painful urination, hematuria, polyuria Neurological: Denies numbness, weakness, tingling Musculoskeletal: Denies back pain Skin: Denies any rashes or lesions EXAM Physical Exam Narrative Exam Narrative: General: Patient lying in bed did appear to be uncomfortable Head: Atraumatic, normocephalic Eyes: PERRLA, EOMI bilateral, no conjunctival injection noted Neck: Soft, supple, trachea midline Cardiovascular: Patient tachycardic with a regular rhythm no murmurs gallops rubs noted Respiratory: Clear to auscultation bilaterally Abdomen: Soft, nondistended, tender to palpation epigastric and left upper quadrant region no rebound or guarding on exam, bowel sounds present x 4 Rectal: Stool was brown in nature no bright red blood Extremities: +5/5 strength noted in the bilateral lower extremities, radial pulses +2/4 in the bilateral per extremities Neurological: Patient following commands knew that she was at [facility] years 2023 Skin: Warm, dry, intact Const Vital Signs: 08/02/24 07:39 08/02/24 07:40 08/02/24 07:44 Temperature 97.9 F 98.8 F Temperature Source Temporal Oral Pulse Rate 127 H 111 H Respiratory Rate 24 H 22 H Respiratory Effort Blood Pressure 139/90 H 127/83 H Blood Pressure Mean 106 97 Pulse Ox 94 93 92 Oxygen Delivery Method Room Air Room Air 08/02/24 07:50 08/02/24 09:00 08/02/24 10:00 Temperature 98.4 F Temperature Source Oral Pulse Rate 93 111 H Respiratory Rate 26 H 23 H Respiratory Effort Normal Blood Pressure 124/83 H Blood Pressure Mean 96 Pulse Ox 92 94 Oxygen Delivery Method Room Air Room Air 08/02/24 10:00 08/02/24 10:20 Temperature 97.7 F L Temperature Source Pulse Rate 109 H 111 H Respiratory Rate 24 H 23 H Respiratory Effort Blood Pressure 124/83 H 124/83 H Blood Pressure Mean 96 96 Pulse Ox 94 93 Oxygen Delivery Method Room Air MDM MDM MDM Narrative Medical decision making narrative: Patient is a 64-year-old female who presented to the emergency department with chief complaint of chest pain, hemoptysis and abdominal pain. Patient will have a workup performed here on the differential diagnose includes but limited to ACS, pneumonia, bronchitis, PE, gastritis, upper GI bleed. Once workup is obtained reviewed she will be reevaluated Patient CBC reviewed and was significant leukocytosis of 1000, hemoglobin stable at 13, platelet count was noted be normal at 388. Patient sodium normal 136, potassium normal at 4, creatinine normal at 0.74. Patient's lactic acid normal at 1.1, AST and ALT were 2019 respectively with a normal total bilirubin of 0.60. Patient troponin was normal at less than 3, EKG reviewed and independently turbid by myself showed sinus tachycardia at a rate of [address] changes noted. Patient lipase normal at 33. Patient's CTA of her chest was reviewed and showed a right hilar mass with dominant mass in the right lower lobe measuring 4.5 cm x 3.6 cm. Right hilar mass as well as mediastinal adenopathy nodule seen in the right lower lobe. Diffuse emphysematous changes with bullous formation and scarring noted. Patient CT abdomen pelvis with IV contrast was reviewed and showed a 4.2 cm x 4.4 cm mass in the right lower lobe. Multiple scattered hypodense nodules throughout both lobes of the liver suggestive of diffuse metastatic deposits. Abnormal thickening of the endometrium for postmenopausal phase gynecological correlation with recommendation. Patient did not complain of any vaginal spotting has not followed up with gynecology and a significant time. At this point time do believe the patient will warrant admission to the hospital for further workup of her cancer diagnosis with metastasis. Will discuss case with hospitalist. Discussed case with Dr. Waller who will accept the patient for admission. I did sit down and have a long discussion with the patient about her results with significant other bedside. Lab Data Labs: Laboratory Results - last 24 hr 08/02/24 08/02/24 08/02/24 07:49 08:51 10:06 WBC 11.5 H RBC 4.21 Hgb 13.0 Hct 38.6 MCV 91.7 MCH 30.9 MCHC 33.7 RDW Std Deviation 44.3 H RDW Coeff of Joe 13.3 Plt Count 388 MPV 9.8 Immature Gran % (Auto) 0.500 Neut % (Auto) 66.0 Lymph % (Auto) 18.5 L Swift % (Auto) 9.7 Eos % (Auto) 5.0 Baso % (Auto) 0.3 Absolute Neuts (auto) 7.6 Absolute Lymphs (auto) 2.13 Nucleated RBC % 0 Sodium 136 Potassium 4.0 Chloride 106 Carbon Dioxide 22.0 Anion Gap 8 BUN 13 Creatinine 0.74 Estim Creat Clear Calc 51.39 Est GFR (MDRD) Af Amer 103 Est GFR (MDRD) Non-Af 85 BUN/Creatinine Ratio 17.6 Glucose 99 Lactic Acid 1.1 Calcium 9.5 Total Bilirubin 0.60 Direct Bilirubin 0.13 AST 20 ALT 19 Alkaline Phosphatase 94 Troponin I High Sens < 3 L Total Protein 7.9 Albumin 3.5 Globulin 4.4 H Lipase 33 Urine Color Yellow Urine Clarity Clear Urine pH 6.0 Ur Specific Rye 1.010 Urine Protein Negative Urine Glucose (UA) Normal Urine Ketones 50 H Urine Occult Blood 25 H Urine Nitrite Negative Urine Bilirubin Negative Urine Urobilinogen Normal Ur Leukocyte Esterase Negative Radiography Diagnostic Testing: Clinical Impression(s) from Imaging Studies Abdomen/Pelvis CT 08/02/24 08:45 IMPRESSION: 4.2 cm x 4.4 cm mass in the right lower lobe. Multiple scattered hypodense nodules throughout both lobes of the liver suggestive of diffuse metastatic deposits. Abnormal thickening of the endometrium for the postmenopausal phase. Gynecologic correlation recommended. Electronically Signed: Ayo Gruber MD at 9:20 EST , Chest CTA 08/02/24 08:45 IMPRESSION: Right hilar mass with dominant mass in the right lower lobe measuring 4.5 cm x 3.6 cm. Right hilar mass as well as mediastinal adenopathy. Nodules seen in the right lower lobe. Diffuse emphysematous changes with bullous formation and scarring. Electronically Signed: Ayo Gruber MD at 9:25 EST , Discharge Plan Triage Chief Complaint: Chest Pain ED Provider: Bull Nowak Dx/Rx/DC Orders Clinical Impression: Lung cancer, Cancer, metastatic to liver Prescriptions: No Action diazepam 5 MG tablet 2.5 mg PO BID Patient Comments: OCCASIONALLY TAKES 5MG PER DOSE, PCPC ATTEMPTING TO WEAN PT docusate sodium 100 MG capsule 100 mg PO DAILY Qty: 20 0RF Primary Care Provider: Smith Espinosa Chi Referrals: Smith Espinosa Chi, MD [Primary Care Provider] - Print Language: Nigerien
[2024-08-02] MEDS: LORazepam 2 MG/ML Syringe 0.5 MG IV (08:07)
[2024-08-02] MEDS: Morphine 2 MG/ML Syringe IV ×3 (08:08→18:24)
[2024-08-02] MEDS: Ondansetron 4 MG/2 ML Vial IV (08:08)
[2024-08-02 08:23] LABS: Anion Gap 8 (5-15); BUN 13 mg/dL (7-18); BUN/Creat Ratio 17.6 RATIO (10-20); Calcium,Total 9.5 mg/dL (8.5-10.1); Chloride 106 mmol/L (98-107); Creatinine, Serum 0.74 mg/dL (0.55-1.02); EST Glomerular Filtration Rate 85 mL/min (>60); Est Glom Filt Rate - Afr Amer 103 mL/min (>60); Estimated Creatinine Clearance 51.39 ml/min; Glucose 99 mg/dL (74-106); Sodium Level 136 mmol/L (136-145); Troponin-I HS (w/2H Reflex) < 3 pg/mL (3.0-54.0)
[2024-08-02 08:24] LABS: AST(SGOT) 20 U/L (15-37); Alanine Aminotransfer ALT/SGPT 19 U/L (13-56); Albumin, Serum 3.5 g/dL (3.2-5.0); Alkaline Phosphatase 94 U/L (45-117); Bilirubin, Direct 0.13 mg/dL (0.00-0.30); Globulin 4.4 g/dL (2.2-4.2); Lipase 33 U/L (13-75); Protein, Total 7.9 g/dL (6.4-8.2)
--- NOTE | 2024-08-02 08:45 | CT_ITS ---
STUDY: CTA CHEST REASON FOR EXAM: Female, 64 years old. Coughing up blood RADIATION DOSAGE (If Supplied By Facility): CTDIvol = ( 6.21 ) mGy, DLP = ( 511.56 ) mGy TECHNIQUE: The examination was performed with the intravenous administration of IV 75mL Isovue-370. Post-processing of the angiographic images was performed, with multiplanar reformation and 3D reconstruction. Individualized dose optimization techniques were used for this CT. COMPARISON: None. FINDINGS: Normal enhancement of the main pulmonary artery and right and left pulmonary arteries. Normal enhancement of the bilateral peripheral pulmonary arteries. There is no demonstrated pulmonary embolism. There is atherosclerotic calcification of the aortic arch with tortuosity. There is no demonstrated aortic dissection. There are calcifications of the coronary arteries. 9.4 mm x 9 mm nodule in the superior segment of the right lower lobe. Heterogeneous nodule in the superior segment of the right lower lobe measuring 7.2 mm x 6.8 mm as seen on axial image #159. Normal visualized trachea and bronchi. Emphysematous changes. There is evidence of a bronchiectasis and subpleural blebs in the lower lobes in keeping with the chronic interstitial fibrosis. Bullous formation in the upper lobes in keeping with the centrilobular emphysema worse in the upper lobes. There is a 4.5 cm x 3.6 cm mass in the right lower lobe. There is evidence of a 4 cm x 3.4 cm right hilar and infrahilar mass suggestive of a neoplastic process. There is narrowing of the right interlobar bronchus. There is evidence of soft tissue density within the subcarinal space in keeping with mediastinal lymphadenopathy. Normal pleura. Normal chest wall structures. There are degenerative changes of thoracic spine. Findings suggestive of liver metastasis. CT/CTA Chest W/WO Contrast IMPRESSION: Right hilar mass with dominant mass in the right lower lobe measuring 4.5 cm x 3.6 cm. Right hilar mass as well as mediastinal adenopathy. Nodules seen in the right lower lobe. Diffuse emphysematous changes with bullous formation and scarring. Electronically Signed: Ayo Gruber MD at 9:25 EST ,
--- NOTE | 2024-08-02 08:45 | CT_ITS ---
STUDY: CT ABDOMEN AND PELVIS WITH CONTRAST REASON FOR EXAM: Female, 64 years old. Epigastric pain, LUQ pain RADIATION DOSAGE (If Supplied By Facility): CTDIvol = ( 6.21 ) mGy, DLP = ( 511.56 ) mGycm TECHNIQUE: Transaxial images were obtained from the dome of the diaphragm to the symphysis pubis without oral contrast. IV 75mL Isovue-370 was administered. Sagittal and coronal images were reconstructed. Individualized dose optimization techniques were used for this CT. COMPARISON: None. FINDINGS: There is a 4.2 cm x 4.4 cm hypodense mass in the right lower lobe. Mildly atelectasis and/or scarring also seen in the lower lobes. The visualized portions of the heart are within normal limits. Multiple scattered hypodense nodules throughout both lobes of the liver suggestive of metastatic deposits. Normal gallbladder and extrahepatic biliary system. Normal spleen. Normal pancreas. Normal bilateral adrenal glands. Normal right kidney. Normal left kidney. Normal visualized stomach. Normal small intestine. Normal colon. The appendix is visualized and appears normal. There is atherosclerotic calcification of the abdominal aorta, without a demonstrated aneurysm. Normal inferior vena cava. Normal retroperitoneum. Normal urinary bladder. Heterogeneous thickening of the endometrium. This is abnormal for the patient''s postmenopausal phase. Bilateral tubal ligation clips are seen. Normal abdominal wall. There are mild degenerative changes of the visualized lumbar spine. CT/Abdomen/Pelvis W IV Cont ONLY IMPRESSION: 4.2 cm x 4.4 cm mass in the right lower lobe. Multiple scattered hypodense nodules throughout both lobes of the liver suggestive of diffuse metastatic deposits. Abnormal thickening of the endometrium for the postmenopausal phase. Gynecologic correlation recommended. Electronically Signed: Ayo Gruber MD at 9:20 EST ,
[2024-08-02 09:33] LABS: Lactic Acid 1.1 mmol/L (0.4-1.9)
[2024-08-02 09:54] LABS: Reflex Troponin-HS? (from REC) Y
[2024-08-02 10:12] LABS: Bacteria 0 SEEN /hpf (None Seen); Mucous, Urine 0 SEEN /hpf (<or=2+); Red Blood Cells-Urine 0 SEEN /hpf (0-5); White Blood Cells 0 SEEN /hpf (0-5)
[2024-08-02 10:22] LABS: Color, Urine Yellow (Yellow); Glucose, Dipstick Normal (Normal); Ketone-Dipstick 50 mg/dl (Negative); Leukocyte Esterase-Dipstick Negative /ul (Negative); Nitrite-Dipstick Negative (Negative); Occult Blood-Urine 25 /ul (Negative); Protein-Dipstick Negative (Negative); Urine Bilirubin Dipstick Negative (Negative); Urine Clarity Clear (Clear); Urine Urobilinogen Normal (Normal)
[2024-08-02 10:33] LABS: Squamous Epithelial Cells - UA 0-5 SEEN /hpf (5-10)
[2024-08-02 10:58] LABS: Troponin-I HS 4 pg/mL (3.0-54.0)
[2024-08-02 11:14] LABS: Prothrombin Time (Protime)PT. 13.6 SECONDS (11.7-14.9)
[2024-08-02 11:15] LABS: Partial Thromboplast Time 31.6 Seconds (24.1-36.2)
--- NOTE | 2024-08-02 11:33 | CON.PCM.CC_ITS ---
Assessment & Plan Assessment/Plan (1) Hemoptysis: PLAN: Plan RECOMMENDATIONS: 1. Proceed with CT biopsy of liver lesions to establish diagnosis and stage. 2. Initiate bronchodilator therapy on admission. 3. N.p.o. after midnight. IMPRESSIONS: 1. Chest discomfort with hemoptysis The patient presented to the hospital with chest discomfort and several episodes of hemoptysis overnight with radiographic evidence of a dominant right lower lobe lung mass with concern for mediastinal and liver metastatic disease. The patient is a lifelong smoker without any prior chest imaging on file. I suspect that her presenting hemoptysis is likely secondary to malignancy infiltration into the mediastinum. Given the concern for distant metastatic deposits in the liver, recommend proceeding with CT-guided biopsy if feasible to establish a diagnosis and stage. If biopsy of the liver lesions are unsuccessful, bronchoscopic evaluation can be completed with the assistance of EBUS to facilitate mediastinal sampling. The patient is in agreement to proceed with further workup. This case has been discussed with radiology who is in agreement to proceed with liver biopsy. 2. History of chronic tobacco dependency Complicates care, management, recovery and prognosis. Nicotine replacement therapy can be offered to the patient while admitted to the hospital. This note was generated with [employer] dictation software. It may contain incorrect words, spelling, and punctuation that were not noted in checking the note before signing. HPI Consult Data Date of Consult: 08/02/24 HPI Narrative Reason for Consultation: Lung mass, hemoptysis HPI Narrative: The patient is a 64-year-old female, with a history as outlined below, who presented to the emergency department on August 02 with complaints of chest discomfort and hemoptysis. The patient reported that she had an upper respiratory illness several weeks ago and had some self-limited hemoptysis at that time. Last night, the patient reported that she coughed up blood on 3 separate occasions. The patient does have a [id number] smoking history and continues to smoke 1 pack of cigarettes per day. 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 She denies any overt shortness of breath. She is not currently on any form of bronchodilator therapy. She has never had a low-dose CT scan completed in the past. She denies any significant unintentional weight loss. She is not currently on any blood thinners. On presentation to the emergency department, the patient was documented to be afebrile and hemodynamically stable. She was, nevertheless tachycardic and tachypneic, but was still maintaining appropriate oxygen saturations on room air. Laboratory evaluation revealed a white blood cell count of 11,000. Coagulation profile was unremarkable with normal INR. Chemistry profile was unremarkable. CTA chest/abdomen/pelvis was obtained. That imaging demonstrated a background of emphysema and bronchiectasis along with several subcentimeter pulmonary nodules in the right lower lobe and a dominant right lower lobe lung mass measuring 4.5 x 3.6 cm. There was additional involvement in the right hilar region with an infrahilar mass suggestive of metastatic disease which appeared to be compromising the right interlobar bronchus. In addition to the aforementioned, the patient was noted to have several hypodense lesions throughout both lobes of the liver, suggestive of metastatic disease. REPLACED BY [facility] Medical History Depression Anxiety Home Medications ?Medication ?Instructions ?Recorded ?Last Taken ?Type diazepam 5 mg tablet 2.5 mg PO BID 05/18/18 06/17/18 History docusate sodium 100 mg capsule 100 mg PO DAILY #20 caps 09/23/19 Unknown Rx Allergy/AdvReac Type Severity Reaction Status Date / Time ibuprofen Allergy Hives Verified 08/02/24 07:41 Family History Father CVA (cerebral vascular accident) Myocardial infarction Mother CVA (cerebral vascular accident) Brain aneurysm Surgical History Encounter for Essure implantation History of tonsillectomy Social History Smoking Status: Current every day smoker tobacco type: cigarettes alcohol intake: current details: social substance use type: does not use and marijuana caffeine: Yes what type of physical activity do you participate in: walking seatbelt use: always do you feel safe at home: Yes additional social history: Phil- Disabled Patient stays at home ROS ROS Narrative 10 systems were reviewed with pertinent positives as noted in the HPI above. Physical Exam Const alert, oriented x3 and no apparent distress Constitutional Narrative: Family is present at the bedside. General Appearance: cooperative HEENT normocephalic, head/scalp atraumatic and moist oral mucous membranes Eyes PERRL, EOMs intact bilaterally and conjunctivae normal Neck supple General: trachea midline Chest inspection of chest normal Resp normal respiratory effort Auscultation: diminished lung sounds; Negative for rales, rhonchi or wheezes Cardio regular rate and regular rhythm GI normal to inspection, nondistended, normoactive bowel sounds Extremity no clubbing, cyanosis or edema Skin no rashes or lesions noted Neuro CN's II-XII intact bilaterally, moves all extremities and no focal motor deficits Psych cooperative and affect normal Lab / Micro Data 08/02/24 07:49 08/02/24 07:49 Labs: Laboratory Results - last 24 hr 08/02/24 07:49: WBC 11.5 H, RBC 4.21, Hgb 13.0, Hct 38.6, MCV 91.7, MCH 30.9, MCHC 33.7, RDW Std Deviation 44.3 H, RDW Coeff of Joe 13.3, Plt Count 388, MPV 9.8, Immature Gran % (Auto) 0.500, Neut % (Auto) 66.0, Lymph % (Auto) 18.5 L, [place] % (Auto) 9.7, Eos % (Auto) 5.0, Baso % (Auto) 0.3, Absolute Neuts (auto) 7.6, Absolute Lymphs (auto) 2.13, Nucleated RBC % 0, PT 13.6, INR 1.0, APTT 31.6, Sodium 136, Potassium 4.0, Chloride 106, Carbon Dioxide 22.0, Anion Gap 8, BUN 13, Creatinine 0.74, Estim Creat Clear Calc 51.39, Est GFR (MDRD) Af Amer 103, Est GFR (MDRD) Non-Af 85, BUN/Creatinine Ratio 17.6, Glucose 99, Calcium 9.5, Total Bilirubin 0.60, Direct Bilirubin 0.13, AST 20, ALT 19, Alkaline Phosphatase 94, Troponin I High Sens < 3 L, Total Protein 7.9, Albumin 3.5, G lobulin 4.4 H, Lipase 33 08/02/24 08:51: Lactic Acid 1.1 08/02/24 10:06: Urine Color Yellow, Urine Clarity Clear, Urine pH 6.0, Ur Specific [place] 1.010, Urine Protein Negative, Urine Glucose (UA) Normal, Urine Ketones 50 H, Urine Occult Blood 25 H, Urine Nitrite Negative, Urine Bilirubin Negative, Urine Urobilinogen Normal, Ur Leukocyte Esterase Negative, Urine RBC 0 SEEN, Urine WBC 0 SEEN, Ur Squamous Epith Cells 0-5 SEEN, Urine Bacteria 0 SEEN, Urine Mucus 0 SEEN 08/02/24 10:31: Troponin I High Sens 4 Micro: Microbiology 08/02/24 07:58 Stool Stool Occult Blood (TIANA) - Final Imaging Radiology Impression Abdomen/Pelvis CT 08/02/24 08:45 IMPRESSION: 4.2 cm x 4.4 cm mass in the right lower lobe. Multiple scattered hypodense nodules throughout both lobes of the liver suggestive of diffuse metastatic deposits. Abnormal thickening of the endometrium for the postmenopausal phase. Gynecologic correlation recommended. Electronically Signed: Ayo Gruber MD at 9:20 EST , Chest CTA 08/02/24 08:45 IMPRESSION: Right hilar mass with dominant mass in the right lower lobe measuring 4.5 cm x 3.6 cm. Right hilar mass as well as mediastinal adenopathy. Nodules seen in the right lower lobe. Diffuse emphysematous changes with bullous formation and scarring. Electronically Signed: Ayo Gruber MD at 9:25 EST , Charges/Coding Visit Charges Inpatient E&M: 27352 Init Hosp L3
[2024-08-02] MEDS: 0.9% Normal Saline (1000mL) 1,000 ML 125 ML IV ×2 (12:56→21:08)
[2024-08-02] MEDS: Ipratropium/Albuterol Sulfate 3 ML AMPUL.NEB INHALATION ×2 (14:56→19:43)
[2024-08-02] MEDS: oxyCODONE 5 MG Tablet PO ×2 (15:25→21:07)
[2024-08-02] MEDS: Acetaminophen 325 MG Tablet 650 MG PO (15:26)
--- NOTE | 2024-08-02 16:41 | HP.PCM_ITS ---
HPI - General General Date of Admission: 08/02/24 Date of Service: 08/02/24 Chief Complaint: chest pain HPI Narrative ZABRINA BARROSO, is a 64 F with no significant past medical history who was admitted through the ED on 08/02/2024 with a complaint of left-sided chest pain which had been going on for about 2 days. She said the pain was left-sided and under her rib. She denied any shortness of breath and says she subsequently started coughing up blood. She denied any fever or chills, nausea vomiting or any other symptoms. She felt she was getting weaker so decided to come into the ED. She says she has lost quite significant amount of weight but says she has not been a big person and so cannot really quantify how much weight she lost. She does have a history of smoking since she was 14 and says she smoked about a pack a day since then. Review of symptoms otherwise negative. Vitals in the ED were blood pressure of 115/72, and patient was tachycardic with heart rate between the 110s and 120s at time of my review. Respiratory rate was 23 and she was saturating at 97% on room air. CBC showed hemoglobin of 13 with WBC of 11.5 and platelets of 388. INR was 1. Chemistry showed sodium of 136 with potassium of 4 and bicarb of 22. Creatinine was 0.74. Urinalysis showed no evidence of UTI. CT of the chest done showed right hilar mass with dominant mass in the right lower lobe measuring 4.5 x 2.6 cm as well as right hilar mass as well as mediastinal adenopathy and diffuse emphysematous changes with bullous formation and scarring. CT of the abdomen and pelvis done showed the mass in the right lower lobe and multiple scattered hypodense nodules throughout both lobes of the liver suggestive of diffuse metastatic deposits and abnormal thickening of the endometrium for the postmenopausal phase. She has been admitted to be managed for probable metastatic cancer of lung origin. [facility] Medical History Depression Anxiety Home Medications ?Medication ?Instructions ?Recorded ?Last Taken ?Type diazepam 5 mg tablet 2.5 mg PO BID anxiety 05/18/18 06/17/18 History albuterol sulfate 90 mcg/actuation 2 puff inhalation Q4H PRN PRN sob 08/02/24 Unknown History aerosol inhaler codeine 10 mg-guaifenesin 100 mg/5 10 ml PO Q6H PRN cough 08/02/24 Unknown History mL oral liquid mirtazapine 7.5 mg tablet 7.5 mg PO QHS appetite 08/02/24 07/31/24 History Allergy/AdvReac Type Severity Reaction Status Date / Time ibuprofen Allergy Hives Verified 08/02/24 07:41 Family History (Updated 08/02/24 @ 12:05 by Hannah Kenyon) Father Myocardial infarction CVA (cerebral vascular accident) Mother Brain aneurysm CVA (cerebral vascular accident) Grandmother Cancer Surgical History Encounter for Essure implantation History of tonsillectomy Social History (Updated 08/02/24 @ 12:06 by Hannah Kenyon) Smoking Status: Current every day smoker tobacco type: cigarettes Smoking packs per day: 0.5 Smoking cigarettes per day: 10.0 Years smoked: 50 Smoking pack- years: 25.00 Tobacco: How many years used: 50 alcohol intake: current details: social substance use type: does not use and marijuana caffeine: Yes what type of physical activity do you participate in: walking seatbelt use: always do you feel safe at home: Yes additional social history: Phil- Disabled Patient stays at home ROS Constitutional Constitutional: Reports anorexia, change in weight, fatigue, malaise, weakness and weight loss; Denies chills or fever(s) Eyes Eyes: Denies change in vision or double vision ENT HEENT: Denies dysphagia, headache(s) or sore throat Cardiovascular Cardiovascular: Reports chest pain; Denies edema, orthopnea, palpitations, paroxysmal nocturnal dyspnea or syncope Respiratory/Chest Respiratory/Chest: Reports cough and hemoptysis; Denies shortness of breath at rest, shortness of breath with exertion or wheezing Gastrointestinal Gastrointestinal: Denies abdominal pain, constipation, diarrhea, nausea or vomiting Genitourinary Genitourinary: Denies dysuria Musculoskeletal Musculoskeletal: Denies joint pain Neurologic Neurologic: Denies confusion, dizziness, focal weakness, headache(s), lack of coordination, seizures or weakness Psychiatric Psychiatric: Denies anxiety or depression Endocrine Endocrinology: Denies change in body appearance Vital Signs Vital Signs Vital Signs: 08/02/24 07:39 08/02/24 07:40 08/02/24 07:44 Temperature 97.9 F 98.8 F Temperature Source Temporal Oral Pulse Rate 127 H 111 H Respiratory Rate 24 H 22 H Respiratory Effort Respiratory Depth Respiratory Pattern Blood Pressure 139/90 H 127/83 H Blood Pressure Mean 106 97 Blood Pressure Source Blood Pressure Position Blood Pressure Location Pulse Ox 94 93 92 Oxygen Delivery Method Room Air Room Air 08/02/24 07:50 08/02/24 09:00 08/02/24 10:00 Temperature 98.4 F Temperature Source Oral Pulse Rate 93 111 H Respiratory Rate 26 H 23 H Respiratory Effort Normal Respiratory Depth Respiratory Pattern Blood Pressure 124/83 H Blood Pressure Mean 96 Blood Pressure Source Blood Pressure Position Blood Pressure Location Pulse Ox 92 94 Oxygen Delivery Method Room Air Room Air 08/02/24 10:00 08/02/24 11:00 08/02/24 11:05 Temperature 98.7 F 97.7 F L Temperature Source Oral Pulse Rate 109 H 111 H 111 H Respiratory Rate 24 H 22 H 23 H Respiratory Effort Respiratory Depth Respiratory Pattern Blood Pressure 124/83 H 130/67 H 124/83 H Blood Pressure Mean 96 88 96 Blood Pressure Source Blood Pressure Position Blood Pressure Location Pulse Ox 94 93 93 Oxygen Delivery Method Room Air Room Air 08/02/24 11:58 08/02/24 12:00 08/02/24 14:56 Temperature 97.8 F Temperature Source Oral Pulse Rate 100 88 Respiratory Rate 16 20 H Respiratory Effort Normal Non-Labored Respiratory Depth Normal Respiratory Pattern Normal Normal Blood Pressure 127/80 H Blood Pressure Mean 95 Blood Pressure Source Monitor Blood Pressure Position Semi-Fowlers Blood Pressure Location Right Arm Pulse Ox 97 Oxygen Delivery Method Room Air Room Air 08/02/24 14:56 08/02/24 15:23 Temperature 98.2 F Temperature Source Oral Pulse Rate 109 H Respiratory Rate 16 Respiratory Effort Respiratory Depth Respiratory Pattern Blood Pressure 115/72 Blood Pressure Mean 86 Blood Pressure Source Monitor Blood Pressure Position Semi-Fowlers Blood Pressure Location Left Arm Pulse Ox 94 92 Oxygen Delivery Method Room Air Room Air Weight Weight: 87 lb 6.4 oz Body Mass Index (BMI) 16.5 Physical Exam Const alert, oriented x3 and no apparent distress Constitutional Narrative: very frail, weak, underweight HEENT normocephalic, head/scalp atraumatic and moist oral mucous membranes Eyes PERRL and EOMs intact bilaterally Neck no lymphadenopathy and supple Lymph Lymphatic: no lymphadenopathy noted and no lymphedema noted Resp normal respiratory effort, normal air movement and clear to auscultation bilaterally Cardio regular rate, regular rhythm, S1 normal heart sound, S2 normal heart sound and no murmurs GI normal to inspection, nondistended, normoactive bowel sounds, soft to palpation and non-tender Extremity normal capillary refill, no clubbing, cyanosis or edema and no calf tenderness Skin General Skin Exam: no breakdown Neuro CN's II-XII intact bilaterally, no focal motor deficits, no sensory deficits noted and deep tendon reflexes 2+ bilaterally Motor Exam: strength 5/5 throughout and general weakness Psych thought process normal and cooperative Appearance: appropriate Results Lab / Micro Data 08/02/24 07:49 08/02/24 07:49 Labs: Laboratory Results - last 24 hr 08/02/24 07:49: WBC 11.5 H, RBC 4.21, Hgb 13.0, Hct 38.6, MCV 91.7, MCH 30.9, MCHC 33.7, RDW Std Deviation 44.3 H, RDW Coeff of Joe 13.3, Plt Count 388, MPV 9.8, Immature Gran % (Auto) 0.500, Neut % (Auto) 66.0, Lymph % (Auto) 18.5 L, [place] % (Auto) 9.7, Eos % (Auto) 5.0, Baso % (Auto) 0.3, Absolute Neuts (auto) 7.6, Absolute Lymphs (auto) 2.13, Nucleated RBC % 0, PT 13.6, INR 1.0, APTT 31.6, Sodium 136, Potassium 4.0, Chloride 106, Carbon Dioxide 22.0, Anion Gap 8, BUN 13, Creatinine 0.74, Estim Creat Clear Calc 51.39, Est GFR (MDRD) Af Amer 103, Est GFR (MDRD) Non-Af 85, BUN/Creatinine Ratio 17.6, Glucose 99, Calcium 9.5, Total Bilirubin 0.60, Direct Bilirubin 0.13, AST 20, ALT 19, Alkaline Phosphatase 94, Troponin I High Sens < 3 L, Total Protein 7.9, Albumin 3.5, G lobulin 4.4 H, Lipase 33 08/02/24 08:51: Lactic Acid 1.1 08/02/24 10:06: Urine Color Yellow, Urine Clarity Clear, Urine pH 6.0, Ur Specific [place] 1.010, Urine Protein Negative, Urine Glucose (UA) Normal, Urine Ketones 50 H, Urine Occult Blood 25 H, Urine Nitrite Negative, Urine Bilirubin Negative, Urine Urobilinogen Normal, Ur Leukocyte Esterase Negative, Urine RBC 0 SEEN, Urine WBC 0 SEEN, Ur Squamous Epith Cells 0-5 SEEN, Urine Bacteria 0 SEEN, Urine Mucus 0 SEEN 08/02/24 10:31: Troponin I High Sens 4 Micro: Microbiology 08/02/24 07:58 Stool Stool Occult Blood (TIANA) - Final Imaging Radiology Impression Abdomen/Pelvis CT 08/02/24 08:45 IMPRESSION: 4.2 cm x 4.4 cm mass in the right lower lobe. Multiple scattered hypodense nodules throughout both lobes of the liver suggestive of diffuse metastatic deposits. Abnormal thickening of the endometrium for the postmenopausal phase. Gynecologic correlation recommended. Electronically Signed: Ayo Gruber MD at 9:20 EST , Chest CTA 08/02/24 08:45 IMPRESSION: Right hilar mass with dominant mass in the right lower lobe measuring 4.5 cm x 3.6 cm. Right hilar mass as well as mediastinal adenopathy. Nodules seen in the right lower lobe. Diffuse emphysematous changes with bullous formation and scarring. Electronically Signed: Ayo Gruber MD at 9:25 EST , Assessment & Plan Assessment/Plan (1) Hemoptysis: (2) Cancer, metastatic to liver: (3) Lung cancer: PLAN: Plan #Probable lung cancer with mets to the liver * Admitted with a complaint of chest pain. Pain was actually left-sided but imaging done showed a 4.5 x 3.6 cm mass in the right lower lobe with evidence of a 4 x 3 cm right hilar and infrahilar mass suggestive of a neoplastic process and narrowing of the right interlobar bronchus with associated mediastinal lymphadenopathy and also findings suggestive of liver metastasis. * CT abdomen and pelvis showed multiple scattered hypodense nodules throughout both lobes of the liver suggestive of diffuse metastatic deposit and abnormal thickening of the endometrium * pulmonology consulted. * for biopsy of the liver lesions tomorrow * PO tylenol, PO oxycodone and IV morphine prn for pain. * PT/OT on board * she does have a 50 pack year history of smoking. * She says her mother has a history of lung cancer and sister also had some cancers but she does not know exactly what kind of cancer it was. * breathing treatment with bronchodilators. * Titrate oxygen as needed to maintain sats >90% * keep NPO past midnight For the liver lesion biopsy tomorrow. Will check PT and INR also for tomorrow. * #Debility and weakness due to probable metastatic lung cancer * as above * INR is 1 and a PTT is 31.6. * #Abnormal endometrial thickening * Will benefit from follow-up with gynecology for further workup as needed. * #History of anxiety and depression: On mirtazapine and diazepam. DVT prophylaxis: SCDs # CODE STATUS: Full code * Patient counseled extensively about different types of CODE STATUS including full code, DNR CCA and DNR CCA. Patient elects to be Full code. * She states her boyfriend is making decisions for her if she is incapacitated. He has 2 daughters who are informed that will be her next of kin but she said they would work with her boyfriend to make the decisions for her so would not be a problem that she is not legally . * Total [id number]-la-[id number] time 17 minutes. Charges/Coding Visit Charges Inpatient E&M: 96698 Init Hosp L3 Procedures Hospitalists Procedures: 14874 Advncd Care Plan 30 Min
[2024-08-02] MEDS: Mirtazapine 15 MG Tablet 7.5 MG PO (21:07)
[2024-08-02] MEDS: diazePAM 5 MG Tablet 2.5 MG PO (21:07)
[2024-08-03] VITALS (16 sets, daily range): BP systolic 114–189; BP diastolic 63–107; PULSE 61–104; RESP 14–18; TEMP 36.4–36.8; O2SAT 87–99
--- NOTE | 2024-08-03 | IMM_PTH ---
PATIENT: ZABRINA BARROSO LOC: [facility] U#:[id number] AGE/SX: 64/F ROOM: [facility] RE08/02/[address]: Dr. Brenda Mckeon MD : 1960 BED: 1 DIS: 08/03/2024 SPEC #: [id number] RECD: 08/04/24 13:47 STATUS: SOUT REQ #: [id number] RANJANA: 08/03/24 00:[address]: Brenda Mckeon DEPT: IMMUNOHISTOCHEMISTRY RECD BY: Vlad Galicia ENTERED: 08/04/24 13:47 SP TYPE: IMMUNO OTHR DR: MD Dr. Jak García MD Dr. Bruce Arthur, MD Dr. Derek Brown, DO Dr. David P Myers, MD Dr. Edward Matheis, MD Dr. Gautam Baskaran, MD Dr. Yordanos Habtegebriel, MD Dr. Hemant Dand, MD Dr. Jose Ochoa, MD Dr. Kimber Foust, MD Dr. Lamia Aljundi, MD Dr. Nana Yaa Koram, MD Dr. Pritam Ghosh, MD Dr. Pavan Irukulla, MD Dr. Saad Farooqi, MD Dr. Sujoy Gill, MD Dr. Tai Chi Kwok, MD Dr. Vikram Anand, MD Dr. William Haden, MD Tissues: Liver, NOS Procedures: RCC (add) NAPSIN A (add) CK20 (add) CK5-6 (add) CK7 (add) CK8 (add) HEP PAR (add) KI-67 (add) P53 (add) FL (add) TTF1 (add) Pankeratin (add) P40 (add) ER (initial) PHYSICIAN & [place] [id number] SPECIMEN INFORMATION: Tissue Source: Liver biopsy Clinical Info: Liver lesions Specimen Number: [id number] CPT code: 98724,91186x77 METHODOLOGY: Deparaffinized sections of prefer/formalin-fixed tissue or PAP/DQ stained slides are incubated with monoclonal/polyclonal antibodies/oligonucleotide probes. Localization is made via biotin free immunoperoxidase method. Appropriate controls are performed and reacted as expected. Results on target cell population are indicated in the following table: RESULTS: ANTIBODY / CLONE RESULT ER (6F11) negative FL (1E2) negative AE1-3 (AE1/AE3/PCK26) positive CK7 (OV-TL12/30) positive CK8 (39ertdO58) positive CK20 (KS20.8) negative TTF-1 (8G7G3/1) positive, weak Napsin A (Rabbit Polyclonal) positive, focal HepPar (OCh1E5) negative RCC (PN-15) negative CK5-6 (D5 & 1684) negative P40 (BC28) negative P53 (DO-7) positive (intermediate pattern) Ki-67 (30-9) positive, moderate These tests were developed and their performance characteristics determined by [facility]. They may not have been cleared or approved by the U.S. Food and Drug Administration. The FDA has determined that such clearance or approval is not necessary. The above immunohistochemical/dualISH markers are ordered and reviewed by the Pathologist. INTERPRETATION: Liver, CT guided core biopsy: Metastatic poorly differentiated non-small cell carcinoma, favor adenocarcinoma. See comment. COMMENT: IHC profile favors lung primary. Clinical correlation and appropriate follow up are necessary. This case has been reviewed in consultation with Dr. Sandra who concurs with the above diagnosis. SJ.mr 08/07/2024
[2024-08-03] MEDS: Morphine 4 MG/ML Syringe IV ×3 (02:33→16:40)
[2024-08-03] MEDS: 0.9% Saline Lock 10 ML Syringe IV ×2 (02:34→16:41)
[2024-08-03] MEDS: Morphine 2 MG/ML Syringe IV (05:47)
[2024-08-03 06:33] LABS: Absolute Lymphocyte Count 1.77 X10^3/uL (0.83-4.51); Absolute Neutrophil Count 4.5 X10^3/uL (2.0-7.7); Basophil# 0.05 X10^3/uL; Basophil% 0.6 % (0-1); Eosinophil# 0.56 X10^3/uL; Eosinophils% 7.2 % (0-5); Hematocrit 32.5 % (37-47); Hemoglobin 10.4 g/dL (12.0-15.0); Lymphocyte # 1.77 X10^3/ul (0.83-4.51); Lymphocyte % 22.8 % (19-41); Mean Corpuscular Hgb 29.8 pg (27.0-32.0); Mean Corpuscular Volume 93.1 fL (81-99); Mean Platelet Vol. 10.3 fl (6.2-12.0); Monocyte# 0.87 X10^3/uL; Monocyte% 11.2 % (0-10); NRBC Flagged by Analyzer 0 % (0-5); Neutrophil # 4.49 X10^3/uL (2.7-7.7); Neutrophil % 57.8 % (47-70); Platelet Count 324 K/mm3 (150-450); RBC Distribution Width CV 13.6 % (11.6-14.6); RBC Distribution Width SD 46.1 fl (35.1-43.9); Red Blood Count 3.49 M/mm3 (4.2-5.4); White Blood Count 7.8 K/mm3 (4.4-11.0)
[2024-08-03 06:55] LABS: Anion Gap 5 (5-15); BUN 9 mg/dL (7-18); BUN/Creat Ratio 17.2 RATIO (10-20); Calcium,Total 8.6 mg/dL (8.5-10.1); Chloride 110 mmol/L (98-107); Creatinine, Serum 0.52 mg/dL (0.55-1.02); EST Glomerular Filtration Rate 126 mL/min (>60); Est Glom Filt Rate - Afr Amer 153 mL/min (>60); Glucose 95 mg/dL (74-106); Potassium 3.6 mmol/L (3.5-5.1); Sodium Level 139 mmol/L (136-145)
[2024-08-03 07:06] LABS: International Normalized Ratio 1.1; Prothrombin Time (Protime)PT. 13.8 SECONDS (11.7-14.9)
[2024-08-03 07:07] LABS: Partial Thromboplast Time 32.5 Seconds (24.1-36.2)
[2024-08-03] MEDS: Ipratropium/Albuterol Sulfate 3 ML AMPUL.NEB INHALATION (07:27)
--- NOTE | 2024-08-03 08:06 | PN.HOSP_ITS ---
Reason for Visit Reason for Visit: Diagnoses Malignant neoplasm of unspecified part of unspecified bronchus or lung (08/02/24) Secondary malignant neoplasm of liver and intrahepatic bile duct (08/02/24) Hemoptysis (08/02/24) Objective Data Objective Data Vital Signs: Vital Signs Temp Pulse Resp BP Pulse Ox O2 Del Method 97.6 F L 93 18 114/77 94 Room Air 08/03/24 02:31 08/03/24 07:28 08/03/24 07:28 08/03/24 02:31 08/03/24 07:28 08/03/24 07:28 Oxygen Delivery Method Room Air Weight: 87 lb 6.4 oz Body Mass Index (BMI) 16.5 Intake & Output: Intake and Output for Last 24 Hours 08/01/24 08/02/24 08/03/24 23:59 23:59 23:59 Intake Total 1700 / 1950 1250 / 1250 Balance 1700 / 1950 1250 / 1250 Lab / Micro Data 08/03/24 05:27 08/03/24 05:27 Labs: Laboratory Results - last 24 hr 08/02/24 07:49: PT 13.6, INR 1.0, APTT 31.6, Sodium 136, Potassium 4.0, Chloride 106, Carbon Dioxide 22.0, Anion Gap 8, BUN 13, Creatinine 0.74, Estim Creat Clear Calc 51.39, Est GFR (MDRD) Af Amer 103, Est GFR (MDRD) Non-Af 85, BUN/Creatinine Ratio 17.6, Glucose 99, Calcium 9.5, Total Bilirubin 0.60, Direct Bilirubin 0.13, AST 20, ALT 19, Alkaline Phosphatase 94, Troponin I High Sens < 3 L, Total Protein 7.9, Albumin 3.5, Globulin 4.4 H, Lipase 33 08/02/24 08:51: Lactic Acid 1.1 08/02/24 10:06: Urine Color Yellow, Urine Clarity Clear, Urine pH 6.0, Ur Specific [place] 1.010, Urine Protein Negative, Urine Glucose (UA) Normal, Urine Ketones 50 H, Urine Occult Blood 25 H, Urine Nitrite Negative, Urine Bilirubin Negative, Urine Urobilinogen Normal, Ur Leukocyte Esterase Negative, Urine RBC 0 SEEN, Urine WBC 0 SEEN, Ur Squamous Epith Cells 0-5 SEEN, Urine Bacteria 0 SEEN, Urine Mucus 0 SEEN 08/02/24 10:31: Troponin I High Sens 4 08/03/24 05:27: WBC 7.8, RBC 3.49 L, Hgb 10.4 L, Hct 32.5 L, MCV 93.1, MCH 29.8, MCHC 32.0 D, RDW Std Deviation 46.1 H, RDW Coeff of Joe 13.6, Plt Count 324, MPV 10.3, Immature Gran % (Auto) 0.400, Neut % (Auto) 57.8, Lymph % (Auto) 22.8, [place] % (Auto) 11.2 H, Eos % (Auto) 7.2 H, Baso % (Auto) 0.6, Absolute Neuts (auto) 4.5, Absolute Lymphs (auto) 1.77, Nucleated RBC % 0, PT 13.8, INR 1.1, APTT 32.5, Sodium 139, Potassium 3.6, Chloride 110 H, Carbon Dioxide 24.0, Anion Gap 5, BUN 9, Creatinine 0.52 L, Estim Creat Clear Calc 70.20, Est GFR (MDRD) Af Amer 153, Est GFR (MDRD) Non-Af 126, BUN/Creatinine Ratio 17.2, Glucose 95, Calcium 8.6 Micro: Microbiology 08/02/24 07:58 Stool Stool Occult Blood (TIANA) - Final Radiography Diagnostic Testing: Radiology Impression Abdomen/Pelvis CT 08/02/24 08:45 IMPRESSION: 4.2 cm x 4.4 cm mass in the right lower lobe. Multiple scattered hypodense nodules throughout both lobes of the liver suggestive of diffuse metastatic deposits. Abnormal thickening of the endometrium for the postmenopausal phase. Gynecologic correlation recommended. Electronically Signed: Ayo Gruber MD at 9:20 EST , Chest CTA 08/02/24 08:45 IMPRESSION: Right hilar mass with dominant mass in the right lower lobe measuring 4.5 cm x 3.6 cm. Right hilar mass as well as mediastinal adenopathy. Nodules seen in the right lower lobe. Diffuse emphysematous changes with bullous formation and scarring. Electronically Signed: Ayo Gruber MD at 9:25 EST ,
[2024-08-03] MEDS: oxyCODONE 5 MG Tablet PO (08:22)
--- NOTE | 2024-08-03 08:58 | EKG12_ITS ---
Test Reason : ARRRY Blood Pressure : */* mmHG Vent. Rate : 105 BPM Atrial Rate : 105 BPM P-R Int : 150 ms QRS Dur : 78 ms QT Int : 334 ms P-R-T Axes : 73 67 36 degrees QTcB Int : 441 ms Sinus tachycardia Possible Left atrial enlargement Borderline ECG When compared with ECG of 02-Aug-2024 07:49, MANUAL COMPARISON REQUIRED DATA IS UNCONFIRMED Confirmed by JOE GAR, PRECIOUS ([id number]), primer expeditor and drier ROBLES JACKSON ([id number]) on 08/07/2024 12:35:00 PM Referred By: MARCY Confirmed By: PRECIOUS DIAZ MD
--- NOTE | 2024-08-03 09:00 | CT_ITS ---
PROCEDURE: CT DIRECTED CORE LIVER BIOPSY INDICATION: Female, 64 years old. Concern for metastatic lung CA -- Please biopsy liver lesions PHYSICIAN: Dr. Allyn Moreno CONSENT: Written informed consent was obtained having explained the risks, benefits and alternatives in detail with the patient who accepted the risks and agreed to proceed. Laboratory review and clinical assessment was performed. CONSCIOUS SEDATION PROTOCOL: The Drugs used were: 1 mg Versed, IV., and 25 mcg Fentanyl, IV. The sedation time was: 22 minutes. Conscious sedation was started at 9:38 AM and terminated at 10:00 AM. The conscious sedation protocol was independently monitored. RADIATION DOSAGE (If Supplied By Facility): CTDIvol = ( 14.5 ) mGy, DLP = ( 198.63 ) mGycm Individualized dose optimization techniques were used for this CT. TECHNIQUE: Using CT image guidance with image documentation, a suitable location in the left lobe of the liver was identified. Using an anterior approach, puncture of the liver was uneventful with an 18-gauge core needle system. 6, 18-gauge core samples were obtained, and submitted in formalin to the pathologist for further assessment. Followup CT scan revealed no distinct sequelae. CT/Biopsy/Inj or Needle Placement IMPRESSION: 1. CT directed core needle biopsy of the liver, using CT image guidance with image documentation as described. 2. Conscious Sedation protocol utilized with independent monitoring. Electronically Signed: Ayo Gruber MD at 10:18 EST ,
[2024-08-03] MEDS: Midazolam 2 MG/2 ML Syringe IV (09:38)
[2024-08-03] MEDS: fentaNYL 100 MCG/2 ML Ampul IV (09:39)
[2024-08-03] MEDS: Lidocaine 2% (20 ml mdv) 20 ML Vial INFILT (09:43)
--- NOTE | 2024-08-03 09:57 | ASPIGT_PTH ---
PATIENT: ZABRINA BARROSO LOC: [facility] U#:[id number] AGE/SX: 64/F ROOM: [facility] RE08/02/[address]: Dr. Brenda Mckeon MD : 1960 BED: 1 DIS: 08/03/2024 SPEC #: [id number] RECD: 08/03/24 10:14 STATUS: MAURILIO REQ #: [id number] RANJANA: 08/03/24 09:[address]: Bernda Mckeon DEPT: SURGICAL PATHOLOGY RECD BY: Siena Matos ENTERED: 08/03/24 10:14 SP TYPE: ASP RAD OTHR DR: MD Dr. Jak García MD Dr. Bruce Arthur, MD Dr. Derek Brown, DO Dr. David P Myers, MD Dr. Edward Matheis, MD Dr. Gautam Baskaran, MD Dr. Yordanos Habtegebriel, MD Dr. Hemant Dand, MD Dr. Jose Ochoa, MD Dr. Kimber Foust, MD Dr. Lamia Aljundi, MD Dr. Nana Yaa Koram, MD Dr. Pritam Ghosh, MD Dr. Pavan Irukulla, MD Dr. Saad Farooqi, MD Dr. Sujoy Gill, MD Dr. Tai Chi Kwok, MD Dr. Vikram Anand, MD Dr. William Haden, MD Tissues: Liver, NOS Procedures: FNA Specimen Adequacy Special Stain Group II Surgery Specimen Level IV Surgery Specimen Level V Imprint (control) HEADER OPERATION: CT guided liver lesion biopsy PRE-OP DIAGNOSIS: Liver lesions TISSUE SUBMITTED: 18 gauge x 6 cores MICROSCOPIC DIAGNOSIS Liver lesions, CT guided core biopsy: Metastatic poorly differentiated non-small cell carcinoma, favor adenocarcinoma. See notes and comment. NOTE: IHC Immunohistochemistry ([id number]) supports the above diagnosis and IHC profile favors lung primary. 08/07/2024 COMMENT The specimen is evaluated at the time of biopsy by Dr. Lomeli. Immediate Evaluation = Negative for malignant cells. Reported to Dr. Gruber at 10:07am on 08-03-2024. Correlation with clinical, radiologic findings and appropriate follow up are necessary. Molecular study on the tumor can be performed if clinically indicated. Please notify the laboratory if it is needed. Case has been reviewed in consultation with Dr. Sandra who concurs with the above diagnosis. IDC:AM MICROSCOPIC DESCRIPTION Slides are reviewed. GROSS DESCRIPTION Received is one container labeled with the patient's name and not further designated. The specimen consists of multiple irregular fragments of dumont soft tissue that in aggregate measure 1.0 x 0.2 x 0.1 cm. The specimen is totally submitted in one cassette. Two touch imprints are prepared at the time of core biopsy. 08/03/2024 TC:0 CPT:87740,18067 ADDENDUM ADDENDUM ADDENDUM ADDENDUM ADDENDUM ADDENDUM ADDENDUM ADDENDUM ADDENDUM ADDENDUM ADDENDUM ADDENDUM ADDENDUM ADDENDUM ADDENDUM ADDENDUM ADDENDUM ADDENDUM ADDENDUM ADDENDUM 08/14/2024 15:40 ADDENDUM 09/25/2024 10:16 ADDENDUM 08/14/2024 15:40 ADDENDUM 08/14/2024 15:40 ADDENDUM 08/14/2024 15:40 ADDENDUM 08/14/2024 15:40 ADDENDUM 08/21/2024 14:41 MISMATCHED REPAIR (MMR) BY IHC WITH INTERPRETATION REPORT BY [facility] INTERPRETATION: No loss of nuclear expression of MMR proteins: Low probability of MSI-H. RESULTS: ANTIBODY CLONE DESCRIPTION RESULTS MLH1 M1 Mismatch repair protein Intact nuclear expression MSH2 [id number] Mismatch repair protein Intact nuclear expression MSH6 44 Mismatch repair protein Intact nuclear expression PMS2 [id number] Mismatch repair protein Intact nuclear expression Please see complete report in e-chart or EMR ONKOSIT ADVANCED LUNG CANCER NGS REPORT FROM [facility] RESULT SUMMARY: Abnormal TUMOR TYPE: Non-small cell carcinoma CLINICAL INFORMATION: Liver lesion CT guided core biopsy showed metastatic poorly differentiated non-small cell carcinoma, favor adenocarcinoma (Testing performed ib ). HISTOPATHOLIGIC REVIEW: Tumor is present and is estimated to comprise 20-50% of nuclei in sample. DETECTED GENOMIC ALTERATIONS: Tier II: Variants of potential clinical significance KRAS p. ([id number]) Tier III: Variant of unknown clinical significance NTRK1 p. ([id number]) ROS1 p. ([id number]) IMMUNOTHERAPY BIOMARKERS: TUMOR MUTATION BURDEN: Low (0.8 mutations / MB) MICROSATELLITE INSTABILITY: MSI NEGATIVE (0%) Please see complete report in e-chart or EMR PD-L1 ([id number]) IMMUNOHISTOCHEMICAL ANALYSIS FROM [facility] RESULTS: Tumor proportion score: Case cancelled on block due to no tumor cells. Please see complete report in e-chart or EMR
--- NOTE | 2024-08-03 10:27 | PCM.PN.INT ---
Assessment & Plan Assessment/Plan (1) Hemoptysis: PLAN: Plan RECOMMENDATIONS: 1. Await CT liver biopsy results. Follow-up in the pulmonary medicine clinic next week as scheduled. 2. If liver biopsy results are inconclusive, would consider mediastinal sampling via EBUS. 3. DME orders have been signed for nebulizer. Please provide the patient with a prescription for DuoNebs at discharge. 4. Perform walking oximetry study prior to consideration for discharge home. 5. Return to the emergency department if the patient develops any kaylah hemoptysis. IMPRESSIONS: 1. Chest discomfort with hemoptysis The patient presented to the hospital with chest discomfort and several episodes of hemoptysis overnight with radiographic evidence of a dominant right lower lobe lung mass with concern for mediastinal and liver metastatic disease. The patient is a lifelong smoker without any prior chest imaging on file. I suspect that her presenting hemoptysis is likely secondary to malignancy infiltration into the mediastinum. Given the concern for distant metastatic deposits in the liver, biopsies were obtained via CT imaging this morning. Pathology results are pending. If liver biopsy results are inconclusive, mediastinal sampling via EBUS will be considered. The patient should follow-up in the pulmonary medicine clinic next week, as scheduled, to review her pathology results. I have signed DME paperwork so that the patient can receive a nebulizer. Recommend initiating DuoNebs at discharge. Ultimately, the patient would benefit from having baseline PFTs completed. This can be arranged on an outpatient basis. Recommend performing walking oximetry study prior to consideration for discharge home. 2. History of chronic tobacco dependency Complicates care, management, recovery and prognosis. Nicotine replacement therapy can be offered to the patient while admitted to the hospital. This note was generated with [employer] dictation software. It may contain incorrect words, spelling, and punctuation that were not noted in checking the note before signing. Subjective Subjective The patient was seen and examined at the bedside this morning. Events from the last 24 hours have been reviewed. The patient is currently afebrile, hemodynamically stable and maintaining appropriate oxygen saturations on 3 L/min via nasal cannula. The patient underwent successful liver biopsy this morning. Pathology results are pending. The patient did report improvement in her overall breathing quality since being started on bronchodilator therapy. She is requesting a home nebulizer. The patient did report to me that if she is confirmed to have an underlying malignancy that she would be interested in pursuing follow-up with the oncology group here at the hospital. The patient reported that her episodes of hemoptysis have nearly completely resolved. Objective Data Objective Data The patient's most recent lab work, culture data and imaging studies have all been personally reviewed. Vital Signs: Vital Signs Temp Pulse Resp BP Pulse Ox O2 Del Method O2 Flow Rate 98.1 F 104 H 16 189/87 H 93 Nasal Cannula 3 08/03/24 08:54 08/03/24 10:00 08/03/24 10:00 08/03/24 10:00 08/03/24 08:54 08/03/24 10:00 08/03/24 10:00 Oxygen Flow Rate (L/min) 3 Oxygen Delivery Method Nasal Cannula Weight: 87 lb 6.4 oz Body Mass Index (BMI) 16.5 Intake & Output: Intake and Output for Last 24 Hours 08/01/24 08/02/24 08/03/24 23:59 23:59 23:59 Intake Total 1700 / 1950 1250 / 1250 Balance 1700 / 1950 1250 / 1250 Lab / Micro Data Attestation: I reviewed the patient's lab results. 08/03/24 05:27 08/03/24 05:27 Labs: Laboratory Results - last 24 hr 08/02/24 07:49: PT 13.6, INR 1.0, APTT 31.6 08/02/24 10:06: Urine RBC 0 SEEN, Urine WBC 0 SEEN, Ur Squamous Epith Cells 0-5 SEEN, Urine Bacteria 0 SEEN, Urine Mucus 0 SEEN 08/02/24 10:31: Troponin I High Sens 4 08/03/24 05:27: WBC 7.8, RBC 3.49 L, Hgb 10.4 L, Hct 32.5 L, MCV 93.1, MCH 29.8, MCHC 32.0 D, RDW Std Deviation 46.1 H, RDW Coeff of Joe 13.6, Plt Count 324, MPV 10.3, Immature Gran % (Auto) 0.400, Neut % (Auto) 57.8, Lymph % (Auto) 22.8, [place] % (Auto) 11.2 H, Eos % (Auto) 7.2 H, Baso % (Auto) 0.6, Absolute Neuts (auto) 4.5, Absolute Lymphs (auto) 1.77, Nucleated RBC % 0, PT 13.8, INR 1.1, APTT 32.5, Sodium 139, Potassium 3.6, Chloride 110 H, Carbon Dioxide 24.0, Anion Gap 5, BUN 9, Creatinine 0.52 L, Estim Creat Clear Calc 70.20, Est GFR (MDRD) Af Amer 153, Est GFR (MDRD) Non-Af 126, BUN/Creatinine Ratio 17.2, Glucose 95, Calcium 8.6 Micro: Microbiology 08/02/24 07:58 Stool Stool Occult Blood (TIANA) - Final Radiography Diagnostic Testing: Radiology Impression Biopsy CT 08/03/24 09:00 IMPRESSION: 1. CT directed core needle biopsy of the liver, using CT image guidance with image documentation as described. 2. Conscious Sedation protocol utilized with independent monitoring. Electronically Signed: Ayo Gruber MD at 10:18 EST Reading Location ID and State: [address] [place] [address] , Service support , Physical Exam Const alert, oriented x3 and no apparent distress Constitutional Narrative: Family is present at the bedside. General Appearance: cooperative HEENT normocephalic, head/scalp atraumatic and moist oral mucous membranes Eyes PERRL, EOMs intact bilaterally and conjunctivae normal Neck supple General: trachea midline Chest inspection of chest normal Resp normal respiratory effort Auscultation: diminished lung sounds; Negative for rales, rhonchi or wheezes Cardio regular rate and regular rhythm GI normal to inspection, nondistended, normoactive bowel sounds Extremity no clubbing, cyanosis or edema Skin no rashes or lesions noted Neuro CN's II-XII intact bilaterally, moves all extremities and no focal motor deficits Psych cooperative and affect normal Charges/Coding Visit Charges Inpatient E&M: 97288 Subs Hosp L2
--- NOTE | 2024-08-03 11:31 | CASEMGMT ---
HUSSAIN LE Assessment Face to Face with patient for initial transition planning/care coordination assessment. HUSSAIN LE introduced self and role at [facility], pt voices understanding. Pt is A&Ox4 and is resting comfortably in bed and is calm. Pt daughter at bedside. Care providers, pharmacy, and demographics verified. Admitting dx: Hemoptysis, Lung Ca w/ METS LACE Strata: 2 PCP: Smith Espinosa Specialists: Denies Preferred Pharmacy: [facility] Insurance: ELSI/ [employer] Prescription Benefit: Yes LNOK: Hunter Rajan ([place]), Delma Rosado (SMA) Living Arrangements: Pt lives with her daughter in a two story home with 3 steps to enter ADLs/IADLs: Reports ind Transportation: Self, daughter. Denies concerns DME: Denies all DME uses or current needs. Per the MD, there will be an oxygen qualification test done prior to DC. A verbal list of local in-network DME companies provided to the pt at this time. Pt prefers [facility]. HHC/SNF: Denies history Pt Goal: Return home once medically ready Plan: TBD. Anticipate eventual DC home. Follow for oxygen. there is no 6-click score currently. PT/OT evaluations are pending. Follow for potential HH or OP Tx. Report given to HEEL BUFFER CM. Brown Adame RN, CM
[2024-08-03] MEDS: diazePAM 5 MG Tablet 2.5 MG PO (11:55)
--- NOTE | 2024-08-03 14:37 | DCINST_ITS ---
Discharge Instructions Diet Discharge Diet: No restrictions (Encourage continued appropriate oral meal intake and hydration.) Activity Discharge Activity: - (Encourage continued routine activity in the home. Use oxygen with activity as ordered.) May resume sexual activity in: 1-2 weeks and - Weight Bearing Status: Weight bearing as tolerated Additional Activity Instructions:: Discharge evaluation with noted oxygenation 93% on room air with noted 87% desaturation when ambulating on room air with improvement to 95% on 2 L nasal cannula thus please continue ordered supplementation until weaned if appropriate per pulmonary medicine. Dressing / Incision Call your doctor if you observe: Fever of 101 or Higher, Shortness of breath (Worsening shortness of breath not improving with aerosols.), Chest pain, Increased palpitations (irregular heartbeat), Calf discomfort, Uncontrolled pain and - (Recurrent severe worsening coughing up blood (Hemoptysis).) Follow Up Care Test Results: Test results from this visit will be discussed in further detail at your follow- up appointment, if applicable. Discharge Plan Admission Admit Date/Time: 08/02/24 10:54 Primary Reason for Your Visit: Hypoxia, R lower lobe lung mass w/ concern for mediastinal/liver metastasis Attending Provider: Brenda Mckeon Primary Care Provider: Smith Espinosa Chi Consulting Providers: Jorge Sandoval; Jak Ramirez; Regino Nevarez; Norm Strange; Phil Diaz; Sridhar Khan; Suleiman Lara; Nita Daly; Juan Francisco Saldivar; Al Perez; Dilcia Malhotra; Anupam Pollard; Sebastian Barajas; Shahram Cabrales; Thony Farmer; Flower Augustin; Ebenezer Jimenes; Devyn Garcia; Lata Waller Instructions Additional Instructions / Restrictions: ADDITIONAL INSTRUCTIONS: Please plan to continue follow-up with your primary care physician as well as pulmonary medicine and to establish with oncology as instructed. Pathology from recent biopsy of suspected liver metastatic disease may not result for approx imately 1 to 2 weeks of note. Please continue use the scheduled DuoNeb therapy as well as albuterol if needed for shortness of breath or wheezing. We strongly encourage continued tobacco cessation. If despite the senna plus to have ongoing constipation MiraLAX may also be an option but this may be reviewed with your primary care physician. Given increased anxiety especially with recent evaluation we strongly do recommend early follow-up with your primary care physician and continued open discussions. Given during discharge evaluation process you had noted oxygenation 93% on room air with noted 87% desaturation when ambulating on room air with improvement to 95% on 2 L nasal cannula please continue oxygen supplementation as ordered until weaned if appropriate by pulmonary medicine. Discharge Orders/Prescriptions Prescriptions: New ipratropium-albuterol 0.5 mg-3 mg(2.5 mg base)/3 mL Solution For Nebulization 3 ml inhalation Q6H Qty: 180 0RF oxycodone 5 mg Tablet 5 mg PO Q4H PRN PRN (Reason: Pain Score 4-10) 5 Days Qty: 20 0RF sennosides-docusate sodium [Senna Plus] 8.6-50 mg tablet 1 tab-cap PO BID PRN (Reason: constipation) Qty: 30 0RF albuterol sulfate 1.25 mg/3 mL solution for nebulization 1.25 mg inhalation Q4H PRN (Reason: Dyspnea, wheezing) Qty: 90 0RF Continued diazepam 5 MG tablet 2.5 mg PO BID Patient Comments: OCCASIONALLY TAKES 5MG PER DOSE, PCPC ATTEMPTING TO WEAN PT mirtazapine 7.5 mg tablet 7.5 mg PO QHS albuterol sulfate 90 mcg/actuation HFA aerosol inhaler 2 puff INHALATION Q4H PRN PRN (Reason: sob) codeine-guaifenesin 10-100 mg/5 mL liquid 10 ml PO Q6H PRN (Reason: cough) Referrals / Follow Up: Judah Lizama MD [Med Staff - Active Staff] - (Follow-up within 1-2 weeks to establish for initiation of cancer treatment/evaluation.) Smith Espinosa Chi, MD [Primary Care Provider] - (Follow-up within 3-5 days to review admission.) Pamela Myers NP-C [Med Staff - Adv Practice Prof] - 08/09/24 10:15 am Disposition Disposition (needs filled in before D/C Order can be placed): Home Health Service
--- NOTE | 2024-08-03 14:38 | DS.PCM_ITS ---
Providers Date of Admission: 08/02/24 Date of Discharge: 08/03/24 Primary Care Physician: Dr. Smith Espinosa MD Consultations 08/02/24 12:10 Consult: Ground Water Technician / Pulmonary Medicine Routine Consulting Provider: Intensivists/Pulmonary Med Reason for Consult: lung mass, presumably cancer EMERGENT Consult: No MD Notified: Yes Date Notified: 08/02/24 Time Notified: 11:01 Method of Notification: Verbal Reason For Visit: HEMOPTYSIS, LUNG CANCER W/ METS Diagnosis Discharge Diagnosis (1) Hemoptysis: Status: Acute Code(s): R04.2 - Hemoptysis Plan: DISCHARGE DIAGNOSES: #1. Chest discomfort with hemoptysis secondary to right lower lobe lung mass with concern for also mediastinal and liver metastatic disease with long-term tobacco cigarette usage concerning for underlying malignant disease #2. Acute hypoxia secondary to right lower lobe lung mass with concern for also mediastinal and liver metastatic disease #3. Chronic cigarette tobacco use #4. Anxiety and depression #5. Severe protein calorie malnutrition #6. Normocytic anemia, appears new and chronicity likely secondary to #1 Medications at Discharge Home Medications diazepam 5 mg tablet 2.5 mg PO BID anxiety 05/18/18 albuterol sulfate 90 mcg/actuation aerosol inhaler 2 puff inhalation Q4H PRN PRN sob 08/02/24 codeine 10 mg-guaifenesin 100 mg/5 mL oral liquid 10 ml PO Q6H PRN cough 08/02/24 mirtazapine 7.5 mg tablet 7.5 mg PO QHS appetite 08/02/24 albuterol sulfate 1.25 mg/3 mL solution for nebulization 1.25 mg (3 mL) inhalation Q4H PRN Dyspnea, wheezing #90 mL 08/03/24 ipratropium 0.5 mg-albuterol 3 mg (2.5 mg base)/3 mL nebulization soln 3 ml inhalation Q6H COPD, Lung mass #180 mL 08/03/24 oxycodone 5 mg tablet 5 mg PO Q4H PRN PRN Pain Score 4-10 5 days #20 tabs 08/03/24 sennosides 8.6 mg-docusate sodium 50 mg tablet (Senna Plus) 1 tab-cap PO BID PRN constipation #30 tabs 08/03/24 Hospital Course Operations None Procedures - (CT guided liver Bx.) Summary of Care Provided Minutes Spent on Discharge: 35 Hospital Course: The patient is a 64 y/o F w/ PMHx: Tobacco use, Anxiety and Depression, evidence severe protein calorie malnutrition who presented to the [facility] ED on 08/02/2024 with history of onset left-sided chest discomfort ongoing for approximately 2 days with onset of hemoptysis with no recent fevers or chills but increased weakness and malaise with weight loss prompting eventual ED evaluation. In the ED patient noted to be mildly tachycardic with rate 1 10-1 20, mildly tachypneic with rate 23 saturating 97% on room air at that time with hemoglobin 13 otherwise no marked findings however CT chest performed demonstrating a right hilar mass with dominant mass in the right lower lobe as well as right hilar mass and significant mediastinal adenopathy as well as diffuse emphysematous changes with bullous formation and scarring, follow-up CT abdomen and pelvis with mass in the right lower lobe and multiple scattered hypodense nodules throughout both lobes of the liver suggestive of Doose Fuhs metastatic deposits as well as abnormal thickening of the endometrium. Patient was admitted, pulmonary medicine was consulted and recommended CT-guided biopsy of the liver which was performed. Patient was treated for underlying pain secondary to metastatic disease. Patient had no recurrent hemoptysis during presentation however her admission hemoglobin 13 and repeat 08/03/24 10.4. Given patient stability pulmonary medicine recommended ambulatory oxygenation trial which was obtained with oxygenation 93% on room air with noted 87% desaturation when ambulating on room air with improvement to 95% on 2 L nasal cannula. Follow-up with pulmonary medicine as well as oncology and PCP was arranged. Patient requested nebulizer and aerosol treatments as well as bowel regimen upon discharge which was provided. Strongly encourage continued tobacco cessation and nicotine replacement was offered but declined. Given clinical stability and improvement quicker than expected per recommendation of pulmonary medicine and per patient/family amenability patient was discharged to home with plan of care as noted. Also of note I have reviewed the oxygen testing, and this patient qualifies for the home equipment and portability. The patient is mobile in the home and the community. Also the patient requires a nebulizer due to significant underlying enthesitis disease in the setting of likely metastatic lung cancer and is prescribed to use scheduled DuoNebs and as needed albuterol with the nebulizer. DAY OF DISCHARGE PROGRESS NOTE: Subjective: Patient without acute event overnight per self and nursing report. Patient denies fever, chills, nausea, emesis, abdominal pain. She does note ongoing discomfort to the chest but this is primarily related with her underlying metastatic disease. She denies any dyspnea at this time. Patient initially very resistant to oxygen but following evaluation amenable patient agreeable to discharge to home with aggressive outpatient follow-up. Patient will be discharged with follow-up with primary care physician within 3-5 days in addition to pulmonary medicine and oncology. Objective: T 98.1, heart rate 97, BP 118/79, respiratory rate 14, 94% on room air. Physical Examination: General: awake, alert, oriented x 3 and cooperative, seated upright in the bed, NAD. Skin: normal color, turgor, no icterus, cyanosis. HEENT: AT/NC, EOMI, PERRLA, MMM. Lungs: Diminished, greater bases, mildly increased respiratory rate but no distress, no rales, rhonchi or wheezing. Heart: Mildly tachycardic with regular rhythm; no gallop, rub audible. Abdomen: soft, cachectic habitus, NTTP, ND, normal BS. Extremities: no cyanosis, clubbing, or edema, evidence of muscle aches. Neurological: patient awake, alert, oriented as noted, cognitive function appears intact upon questioning,; pupils equally reactive to light and accommodation cranial nerves grossly normal, moving all 4 extremities, strength moderately globally decreased. Psychiatric: affect appears fatigued, does admit to underlying anxiety, no acute evidence of depressive feelings. Assessment and Plan: Please see hospital summary above. Weight / BMI Weight Weight: 87 lb 6.4 oz Body Mass Index (BMI) 16.5 ABG / Lab / Microbiology Data 08/03/24 05:27 08/03/24 05:27 Laboratory: Laboratory Results - last 24 hr 08/03/24 05:27: WBC 7.8, RBC 3.49 L, Hgb 10.4 L, Hct 32.5 L, MCV 93.1, MCH 29.8, MCHC 32.0 D, RDW Std Deviation 46.1 H, RDW Coeff of Joe 13.6, Plt Count 324, MPV 10.3, Immature Gran % (Auto) 0.400, Neut % (Auto) 57.8, Lymph % (Auto) 22.8, [place] % (Auto) 11.2 H, Eos % (Auto) 7.2 H, Baso % (Auto) 0.6, Absolute Neuts (auto) 4.5, Absolute Lymphs (auto) 1.77, Nucleated RBC % 0, PT 13.8, INR 1.1, APTT 32.5, Sodium 139, Potassium 3.6, Chloride 110 H, Carbon Dioxide 24.0, Anion Gap 5, BUN 9, Creatinine 0.52 L, Estim Creat Clear Calc 70.20, Est GFR (MDRD) Af Amer 153, Est GFR (MDRD) Non-Af 126, BUN/Creatinine Ratio 17.2, Glucose 95, Calcium 8.6 Microbiology: Microbiology 08/02/24 07:58 Stool Stool Occult Blood (TIANA) - Final Radiography Diagnostic Testing: Radiology Impression Biopsy CT 08/03/24 09:00 IMPRESSION: 1. CT directed core needle biopsy of the liver, using CT image guidance with image documentation as described. 2. Conscious Sedation protocol utilized with independent monitoring. Electronically Signed: Ayo Gruber MD at 10:18 EST Reading Location ID and State: [address] [place] [address] , Service support , Meaningful Use Info Meaningful Use Meaningful Use Diagnoses (Choose all that apply): None applicable Ischemic Stroke Statin Dosing Therapy Reference: STATIN DOSE THERAPY REFERENCE: * Patients > 75 years receive moderate or high dose statin therapy. * Patients 75 years or YOUNGER should receive HIGH intensity statin dose unless contraindicated. You will be required to document reason for non-treatment if statin daily dose does not meet guidelines. HIGH DOSE STATIN THERAPY DAILY Atorvastatin > than or = to 40 mg Rosuvastatin > than or = to 20 mg Amlodipine + Atorvastatin > than or = to 2.5/40 mg Ezetimibe + Simvastatin 10/80 mg Simvastatin 80mg Discharge Plan Admission Admit Date/Time: 08/02/24 10:54 Primary Reason for Your Visit: Hypoxia, R lower lobe lung mass w/ concern for mediastinal/liver metastasis Attending Provider: Brenda Mckeon Primary Care Provider: Smith Espinosa Chi Consulting Providers: Jorge Sandoval; Jak Ramirez; Regino Nevarez; Norm Strange; Phil Diaz; Sridhar Khan; Suleiman Lara; Nita Daly; Juan Francisco Saldivar; Al Perez; Dilcia Malhotra; Anupam Pollard; Sebastian Barajas; Shahram Cabrales; Thony Farmer; Flower Augustin; Ebenezer Jimenes; Devyn Garcia; Lata Waller Instructions Additional Instructions / Restrictions: ADDITIONAL INSTRUCTIONS: Please plan to continue follow-up with your primary care physician as well as pulmonary medicine and to establish with oncology as instructed. Pathology from recent biopsy of suspected liver metastatic disease may not result for approximately 1 to 2 weeks of note. Please continue use the scheduled DuoNeb therapy as well as albuterol if needed for shortness of breath or wheezing. We strongly encourage continued tobacco cessation. If despite the senna plus to have ongoing constipation MiraLAX may also be an option but this may be reviewed with your primary care physician. Given increased anxiety especially with recent evaluation we strongly do recommend early follow-up with your primary care physician and continued open discussions. Given during discharge evaluation process you had noted oxygenation 93% on room air with noted 87% desaturation when ambulating on room air with improvement to 95% on 2 L nasal cannula please continue oxygen supplementation as ordered until weaned if appropriate by pulmonary medicine. Discharge Orders/Prescriptions Prescriptions: New ipratropium-albuterol 0.5 mg-3 mg(2.5 mg base)/3 mL Solution For Nebulization 3 ml inhalation Q6H Qty: 180 0RF oxycodone 5 mg Tablet 5 mg PO Q4H PRN PRN (Reason: Pain Score 4-10) 5 Days Qty: 20 0RF sennosides-docusate sodium [Senna Plus] 8.6-50 mg tablet 1 tab-cap PO BID PRN (Reason: constipation) Qty: 30 0RF albuterol sulfate 1.25 mg/3 mL solution for nebulization 1.25 mg inhalation Q4H PRN (Reason: Dyspnea, wheezing) Qty: 90 0RF Continued diazepam 5 MG tablet 2.5 mg PO BID Patient Comments: OCCASIONALLY TAKES 5MG PER DOSE, PCPC ATTEMPTING TO WEAN PT mirtazapine 7.5 mg tablet 7.5 mg PO QHS albuterol sulfate 90 mcg/actuation HFA aerosol inhaler 2 puff INHALATION Q4H PRN PRN (Reason: sob) codeine-guaifenesin 10-100 mg/5 mL liquid 10 ml PO Q6H PRN (Reason: cough) Referrals / Follow Up: Judah Lizama MD [Med Staff - Active Staff] - (Follow-up within 1-2 weeks to establish for initiation of cancer treatment/evaluation. The office will call you to schedule an appt. ) Smith Espionsa Chi, MD [Primary Care Provider] - 08/08/24 2:40 pm (Follow-up within 3- 5 days to review admission.) Pamela Myers MEMORIAL DESIGNER-C [Med Staff - Adv Practice Prof] - 08/09/24 10:15 am Disposition Disposition (needs filled in before D/C Order can be placed): Home, Self Care Charges/Coding Visit Charges Inpatient E&M: 12526 Disch Hosp >30min
--- NOTE | 2024-08-03 14:39 | CHAPLAIN ---
Type of Pastoral Visit _x__ Initial Visit ___ Follow-up Visit ___ On-call Visit ___ General Patient Visit ___ Spiritual Assessment ___ Family Conference ___ Bereavement ___ Rapid Response ___ Code Blue ___ Other (describe below) Pastoral Care Referral From _x__ Patient ___ Family ___ Nurse ___ Physician ___ Tractor Sweeper Driver ___ Vehicle Check In Clerk ___ Other (describe below) Sacrament/Intervention _x__ Active listening ___ Anointing ___ Druze ___ Bereavement ___ Communion _x__ Lindsey exploration ___ _x__ Life review _x__ Prayer ___ Reconciliation ___ Sacrament of Sick _x__ Supportive presence ___ Wedding ___ Other (describe below) Pastoral Comments patient is resting in a quiet room but is awake and welcoming; pt states that she requested porcelain turner and that she wants support and prayers; pt has new diagnosis of multiple cancers and a biopsy was done and they are figuring out what treatments and how to address it; pt is clear about wanting to live and that I have children and grandchildren to live for; pt gives some life review and some of the recent difficulties she has navigated; pt identifies self as a 'believer in God and trusts in God with connections to a voodoo in [place]; pt admits to anxieties and some depression; presence and prayer given with offer of future support
--- NOTE | 2024-08-03 15:50 | CASEMGMT ---
Addendum entered by Raleigh Madsen 08/04/24 13:03: Call placed to [facility], pt's sig other. He was made aware Albuterol solution was approved, there is no charge, and pt should receive a text notification today when it is ready for pick-up. He voices appreciation. He also states [facility] did delivery pt's oxygen to her home last evening and denies having other needs/concerns. He thanked HUSSAIN LE again for all of the assistance and support provided. Addendum entered by Raleigh Madsen 08/04/24 12:49: Call placed to [facility]. Albuterol solution was approved/PA was obtained. Call placed to [facility] and spoke w/Lashawn. She ran it, it went through, there will be no charge to patient, they have it in stock, and they will get it ready for pt to greens picker. She states pt is set-up for text alert and should be notified when it is ready. Addendum entered by Raleigh Madsen 08/04/24 10:06: Call placed to [facility] to check in PA for Albuterol. Status is in med review. HUSSAIN LE to follow up on this later today. Addendum entered by Raleigh Madsen 08/03/24 17:20: Pt does not have a pulse ox. HUSSAIN LE recommended she has one. Hunter states he can borrow one and also states is aware where they can be purchased. Original Note: HUSSAIN LE NOTE: Home O2 testing has been completed. Pt qualifies for 2 l/m w/exertion. Per Dr Strange, pt would also like a nebulizer. Script obtained for O2 and nebulizer, sent to [facility] via [employer], and both have been delivered to pt's room. Rx's have been e-scribed to [facility]. Call placed to the pharmacy. Duoneb does not require a PA Albuterol requires PA. Call placed to [facility] PA help desk @ [phone] and PA initiated. PA # [phone]. HUSSAIN LE informed [facility] no longer allows for PA's to be expedited and they will render decision w/in 24 hrs. HUSSAIN LE to room. Pt resting in bed. Hunter MILLER, @ bedside. Pt will be discharging to Hunter's home and he will be assisting to take care of pt and will assist pt w/managing pt's medications and appts. They were made aware PA pending for Albuterol tameka't/inhalation via nebulizer and RN CM will f/u with them tomorrow re: same. Also made aware Duoneb and other PO medication Rx's have been sent to [facility] and should be picked up this evening. Hunter voices understanding. They were made aware, until Albuterol tameka't/inhalation PA obtained, pt can use Albuterol inhaler PRN. They were also made aware, once Albuterol tameka't for nebulizer PA is obtained, that pt should only use either the inhaler/puffer or tameka't for inhalation via nebulizer, not both. Pt stated she was having a difficult time understanding this and states, I hope he understands this. Hunter voices understanding and able to verbalize/teach-back to this RN CM understanding of same. He states he will be managing this for pt when she arrives to his home and he will ensure she understands this as well. They are both aware pt to use O2 @ 2l/m w/exertion. Hunter states [facility] direct sales representative went over things well w/them re: home O2 set-up process and the nebulizer and aware to call [facility] prior to leaving the hospital. Pt meets criteria for palliative referral per [facility] screening tool. Broached topic of palliative w/pt and Hunter. They wish to wait until pt has went to f/u appts and for more answers before deciding. Palliative handout provided. They were made aware, if pt decides she would like referral for this, to f/u with PCP. Pt and Hunter both deny having further discharge needs/concerns and thanked RN CM for information. Donavon NOLAN RN, CM
== END 2024-08-03 16:54 | disposition home or self-care (01) | DRG 136 ==
LOC: ED 08:17 → PCU 10:55
PROVIDERS: Admitting Provider Student in an Organized Health Care Education/Training Program; Emergency Provider Emergency Medicine; PCP Family Medicine Geriatric Medicine; Visit Provider Family Medicine
DX: C34.90 Malignant neoplasm of unspecified part of unspecified bronchus or lung (principal); E43 Unspecified severe protein-calorie malnutrition; C78.7 Secondary malignant neoplasm of liver and intrahepatic bile duct; Z66 Do not resuscitate; F32.A Depression, unspecified; D64.9 Anemia, unspecified; J40 Bronchitis, not specified as acute or chronic; F41.9 Anxiety disorder, unspecified; F17.210 Nicotine dependence, cigarettes, uncomplicated; R04.2 Hemoptysis; R59.0 Localized enlarged lymph nodes; Z82.49 Family history of ischemic heart disease and other diseases of the circulatory system; R07.89 Other chest pain; Z80.1 Family history of malignant neoplasm of trachea, bronchus and lung; R09.02 Hypoxemia; Z68.1 Body mass index [BMI] 19.9 or less, adult
CPT/HCPCS: 36415; 71275; 74177; 77012; 80048; 80076; 81001; 82274; 83605; 83690; 84484; 85025; 85610; 85730; 87040; 88172; 88305; 88307; 88313; 88341; 88342; 93005; 94640; 99156; 99285; 99406; J7030; Q9967; A4216; J2405

== ENCOUNTER → 2024-08-14 | Outpatient (CLI) | payer MEDICAID, SELFPAY ==
[2024-08-14 13:32] VITALS: PULSE 107; PULSE 108; PULSE 119; PULSE 121; PULSE 122; PULSE 124; PULSE 127; O2SAT 86; O2SAT 90; O2SAT 92; O2SAT 93; O2SAT 94; O2SAT 95
--- NOTE | 2024-08-22 10:22 | WT_ITS ---
PSN 6 Minute Walk Test 6 Minute Walk Test 6 Minute Walk Test: 6 Minute Walk Test PSN:6-Minute Walk Test Start: 08/14/24 13:17 Freq: Status: Active Protocol: [id number] Document 08/14/24 13:32 DARNELLJOHNRENEE (Rec: 08/14/24 13:35 [id number]) 6 Minute Walk Test Date Performed 08/14/24 Time Performed 12:30 Height 5 ft 1 in Weight: 100 lb Weight in Pounds 100.[address]: Pamela Myers Assistive device used: None Pre-test Oxygen Delivery Method Room Air Pulse Ox (%) 92 Pulse Rate (60-100 beats/min) 108 H Dyspnea Vikas Scale (0-10) 0 Exertion Vikas Scale (6-20) 6 1st minute Oxygen Delivery Method Room Air Pulse Ox (%) 94 Pulse Rate (60-100 beats/min) 122 H 2nd minute Oxygen Delivery Method Room Air Pulse Ox (%) 90 Pulse Rate (60-100 beats/min) 124 H 3rd minute Oxygen Delivery Method Room Air Pulse Ox (%) 86 Pulse Rate (60-100 beats/min) 127 H 4th minute Oxygen Flow Rate (L/min) (L/min) 2 Oxygen Delivery Method Nasal Cannula Pulse Ox (%) 94 Pulse Rate (60-100 beats/min) 122 H 5th minute Oxygen Flow Rate (L/min) (L/min) 2 Oxygen Delivery Method Nasal Cannula Pulse Ox (%) 93 Pulse Rate (60-100 beats/min) 121 H 6th minute Oxygen Flow Rate (L/min) (L/min) 2 Oxygen Delivery Method Nasal Cannula Pulse Ox (%) 92 Pulse Rate (60-100 beats/min) 119 H Dyspnea Vikas Scale (0-10) 1 Exertion Vikas Scale (6-20) 11 Post-test Oxygen Flow Rate (L/min) (L/min) 2 Oxygen Delivery Method Nasal Cannula Pulse Ox (%) 95 Pulse Rate (60-100 beats/min) 107 H Full Laps Walked 11 Partial Lap, Number of Tiles Walked 20 Total Distance Walked (ft) 669 Interpretation Interpretation: The patient ambulated 669 feet over the course of 6 minutes beginning on room air without assistive devices. Pretesting oxygen saturation was noted to be 92% on room air. With ambulation, the thomas oxygen saturation was 86%, requiring the initiation of 2 L/min of supplemental oxygen to maintain appropriate satura tions throughout the remainder of the test. Recommendations Recommendations: 2 L/min of supplemental oxygen should be utilized with exertion.
== END | disposition home or self-care (01) ==
LOC: PSN 12:13
PROVIDERS: PCP Family Medicine Geriatric Medicine; Referring Provider Nurse Practitioner Family; Visit Provider Nurse Practitioner Family
DX: J44.9 Chronic obstructive pulmonary disease, unspecified (principal)
CPT/HCPCS: 94618

== ENCOUNTER → 2024-08-16 | Outpatient (CLI) | payer MEDICAID, SELFPAY | END | disposition home or self-care (01) | LOC: PSN 12:48 | PROVIDERS: PCP Family Medicine Geriatric Medicine; Referring Provider Nurse Practitioner Family; Visit Provider Nurse Practitioner Family | DX: J44.9 Chronic obstructive pulmonary disease, unspecified (principal) | CPT/HCPCS: 94060; 94726; 94729 ==

== ENCOUNTER → 2024-08-22 | Outpatient (CLI) | payer MEDICAID, SELFPAY ==
--- NOTE | 2024-08-22 09:00 | PET_ITS ---
EXAMINATION: FDG-PET/CT ? INDICATIONS: 64-year-old female with a history of primary lung carcinoma, presenting for initial staging examination. ? COMPARISON EXAMINATION: CT of the chest dated 08/02/2024, CT of the abdomen and pelvis 08/02/2024. ? INDEX LESION SIZE SUV INTERPRETATION Right anterior neck, level IV 13.4 mm 18.43 Fulfills quantitative criteria for viable neoplasm ? Right lower lung field, right lower lobe 51.5 mm 22.06 Fulfills quantitative criteria for viable neoplasm ? Right periclavicular region 12.8 mm 17.83 Fulfills quantitative criteria for viable neoplasm ? Mediastinum, right thoracic perihilum 42.6 mm, largest 27.39 Fulfills quantitative criteria for viable neoplasm ? Left and right lobe hepatic parenchyma 32.1 mm 24.5, ratio >2.0 Fulfills quantitative criteria for viable neoplasm ? Abdominal retroperitoneum 17.3 mm 16.01 Fulfills quantitative criteria for viable neoplasm ? Skeletal ? 53.49 Fulfills quantitative criteria for viable neoplasm ? TECHNIQUE: Following the intravenous administration of 13.39 mCi of F-18 deoxyglucose via the right forearm, multiplanar image acquisitions of the head, neck, chest, abdomen and pelvis to the level of the midthigh, obtained at one-hour post radiopharmaceutical administration contemporaneously interpreted with the current CT of the chest, abdomen and pelvis dated 08/22/[address] of the chest dated 08/02/2024, CT of the abdomen and pelvis 08/02/2024 via coregistration reveal: ? SERUM GLUCOSE LEVEL:? 88 mg/dL? HEIGHT:?? 61 inches WEIGHT:?? 91 pounds ? FINDINGS: ? HEAD/NECK:? Facilitated FDG concentration is noted in the right anterior neck involving Level IV. The calculated standard uptake value is 18.43. The maximal axial diameter of the soft tissue density is 13.4 mm. Enhanced labeled uptake is noted in the right periclavicular region. The calculated standard uptake value is 17.83. The largest corresponding soft tissue density is 12.8 mm. ? The visualized portion of the cerebral cortical-subcortical structures demonstrate symmetric and preserved glucose metabolism. ? CHEST:? Facilitated FDG concentration is noted in the right lower posterior lung zone, right lower lobe as well as several additional parenchymal densities bilaterally. The calculated standard uptake value is 22.06. The maximal axial diameter of the largest parenchymal density is 51.5 mm.? Accentuated glucose metabolism is noted in the mediastinal structures and right thoracic perihilum rendering a calculated standard uptake value of 27.39. The largest corresponding soft tissue density demonstrates a maximal axial diameter of 42.6 mm. ? CT of the chest demonstrates the following anatomic characteristics: Coronary artery calcification is observed. A right hemithorax pleural effusion is ametabolic. Additional parenchymal changes noted in the bilateral hemithorax reveal no evidence of increased FDG concentration. Emphysematous changes are defined in the bilateral upper lung zones. ? ABDOMEN/PELVIS:? Multifocal increased radiopharmaceutical concentration is noted in the left and right lobe hepatic (2.0) parenchyma, too many to individually articulate. The calculated standard uptake value is 24.5 with a lesion:liver background ratio of >2.0. The largest corresponding metabolic abnormality demonstrates a maximal axial diameter of 33.1 mm. Facilitated radiotracer uptake is noted in the abdominal retroperitoneum. The calculated standard uptake value is 16.01. The largest corresponding soft tissue density demonstrates a maximal axial diameter of 17.3 mm. Normal physiologic distribution of the radiopharmaceutical is identified in the splenic parenchyma, both renal units, urinary bladder, and visualized intestinal tract. ? CT of the abdomen and pelvis is remarkable for the following: Calcified phlebolith formation is noted in the right lower hemipelvis.? Atherosclerotic calcification is defined in the abdominal aorta without evidence of dilatation, aneurysm formation. Pelvic arterial calcification is observed. Subcentimeter inguinal soft tissue densities are ametabolic. ? SKELETAL:? Minimal disseminated skeletal foci of abnormal increased tracer uptake are noted in the axial and appendicular skeletal structures. The calculated standard uptake value is 53.49.? ? PET/PET/CT Tumor Base -Thigh Init IMPRESSION: 1. ABNORMAL EXAMINATION INDICATIVE OF MALIGNANT-VIABLE NEOPLASM. 2. Enhanced tracer uptake noted in the right anterior neck fulfills quantitative criteria for viable neoplasm. 3. Increased glucose metabolism defined in the right lower lung field, right lower lobe fulfills quantitative criteria for malignant transformation. 4. The right periclavicular and mediastinal and right thoracic perihilar hypermetabolic foci fulfill quantitative criteria for malignant transformation. 5. Left and right lobe hepatic parenchymal metastatic disease is demonstrated. (Ofelia et al, Archives of Surgery, 133:510 1998). 6. The abdominal retroperitoneal hypermetabolic foci fulfill quantitative criteria for viable neoplasm. 7. Disseminated skeletal abnormalities fulfill quantitative criteria for viable neoplasia. (Jame et al, Clinical Nuclear Medicine, 29:161, 2004). Electronic Signature Sanford Franco D.O. Accurate Quantification of SUVs for this report are calculated using the exclusive [employer]. (U.S. Patent No. [id number] [id number] [phone] patent [phone]). Standardization and correction of the FDG SUV metric via [employer] technology allow for vendor non-specific objective quantitative examination comparison and optimization of the sensitivity and specificity of the FDG PET-CT examination. [email or web address] Electronically Signed: Sanford Franco DO at 8:48 EST ,
== END | disposition home or self-care (01) ==
LOC: ONC 08:38
PROVIDERS: PCP Family Medicine Geriatric Medicine; Referring Provider Nurse Practitioner Family; Visit Provider Nurse Practitioner Family
DX: C34.31 Malignant neoplasm of lower lobe, right bronchus or lung (principal)
CPT/HCPCS: 78815; A9552

== ENCOUNTER → 2024-09-18 | Outpatient (CLI) | payer MEDICAID, SELFPAY ==
[2024-09-18 14:16] LABS: Absolute Lymphocyte Count 1.45 X10^3/uL (0.83-4.51); Basophil# 0.05 X10^3/uL; Basophil% 0.1 % (0-1); Eosinophil# 2.87 X10^3/uL; Eosinophils% 8.2 % (0-5); Hematocrit 36.7 % (37-47); Hemoglobin 11.5 g/dL (12.0-15.0); Lymphocyte # 1.45 X10^3/ul (0.83-4.51); Lymphocyte % 4.1 % (19-41); Mean Corp Hgb Conc 31.3 g/dL (32-36); Mean Corpuscular Hgb 29.5 pg (27.0-32.0); Mean Corpuscular Volume 94.1 fL (81-99); Monocyte# 2.24 X10^3/uL; Monocyte% 6.4 % (0-10); NRBC Flagged by Analyzer 0.1 % (0-5); Neutrophil # 26.96 X10^3/uL (2.7-7.7); Neutrophil % 76.8 % (47-70); POSITIVE COUNT YES; POSITIVE DIFFERENTIAL YES; POSITIVE MORPHOLOGY YES; Platelet Count 313 K/mm3 (150-450); RBC Distribution Width CV 17.9 % (11.6-14.6); RBC Distribution Width SD 58.6 fl (35.1-43.9)
[2024-09-18 14:18] LABS: Differential Indicated SCAN CRITERIA MET
[2024-09-18 14:19] LABS: White Blood Count 35.1 K/mm3 (4.4-11.0)
[2024-09-18 14:36] LABS: Differential Comment SCANNED
[2024-09-18 14:55] LABS: ALB/GLOB Ratio 0.8 RATIO (0.9-2.4); AST(SGOT) 51 U/L (15-37); Alanine Aminotransfer ALT/SGPT 79 U/L (13-56); Albumin, Serum 2.9 g/dL (3.2-5.0); Alkaline Phosphatase 368 U/L (45-117); Anion Gap 8 (5-15); BUN 22 mg/dL (7-18); BUN/Creat Ratio 29.8 RATIO (10-20); Calcium,Total 9.1 mg/dL (8.5-10.1); Chloride 104 mmol/L (98-107); Cholesterol 180 mg/dL (200); Creatinine, Serum 0.74 mg/dL (0.55-1.02); EST Glomerular Filtration Rate 85 mL/min (>60); Est Glom Filt Rate - Afr Amer 102 mL/min (>60); Globulin 3.8 g/dL (2.2-4.2); Glucose 93 mg/dL (74-106); High Density Lipoprotein 60 mg/dL; Potassium 4.6 mmol/L (3.5-5.1); Protein, Total 6.7 g/dL (6.4-8.2); Sodium Level 136 mmol/L (136-145); Triglycerides 259 mg/dL; Very Low Density Lipoprotein 52 mg/dL (5-40)
[2024-09-19 11:15] LABS: Pathologist Review Reviewed
== END | disposition home or self-care (01) ==
PROVIDERS: PCP Family Medicine Geriatric Medicine; Referring Provider Family Medicine Geriatric Medicine; Visit Provider Family Medicine Geriatric Medicine
DX: R53.83 Other fatigue (principal); E78.5 Hyperlipidemia, unspecified
CPT/HCPCS: 36415; 80053; 80061; 84443; 85025

== ENCOUNTER 2024-09-26 05:23 | Emergency (ER) | payer MEDICAID, SELFPAY ==
[2024-09-26] VITALS (10 sets, daily range): BP systolic 114–144; BP diastolic 79–98; PULSE 122–134; RESP 18–27; TEMP 36.5–36.8; O2SAT 88–98; BMI 17.4
[2024-09-26] MEDS: Ondansetron 4 MG/2 ML Vial IV (05:59)
[2024-09-26] MEDS: LORazepam 2 MG/ML Syringe 0.5 MG IV ×2 (05:59→08:40)
[2024-09-26] MEDS: HYDROmorphone 1 MG/ML Syringe IV ×2 (05:59→10:41)
[2024-09-26] MEDS: fentaNYL 100 MCG/2 ML Ampul 50 MCG IV (06:40)
--- NOTE | 2024-09-26 07:34 | EX.ED.DYSGE1 ---
HPI History of Present Illness Chief Complaint: Shortness of Breath Informant: patient and spouse/S.O. Narrative Narrative: Patient is a 64-year-old female with past medical history of COPD as well as diagnosis of metastatic lung cancer. She did not wish for treatment with chemo or radiation. She has been undergoing care through palliative care for the last 4 to 5 weeks taking breathing medication supplemental oxygen and pain meds. Patient and significant other report that despite doing this her symptoms have been slowly worsening. However in the last 12 to 24 hours she has been having increasing pain that is not responding to her home oxycodone she has been having increased shortness of breath and worsening cough producing blood. Secondary to the patient failing treatment at home by palliative care EMS was called and she was brought in for evaluation Patient does confirm that she is a DNR comfort care only and does not wish for any type of testing or procedures performed but simply requests treatment and is interested in evaluation by hospice. [facility] Medical History Cancer, metastatic to liver Hemoptysis Lung cancer Depression Anxiety Home Medications ?Medication ?Instructions ?Recorded ?Last Taken ?Type diazepam 5 mg tablet 2.5 mg PO BID anxiety 05/18/18 06/17/18 History albuterol sulfate 90 mcg/actuation 2 puff inhalation Q4H PRN PRN sob 08/02/24 Unknown History aerosol inhaler codeine 10 mg-guaifenesin 100 mg/5 10 ml PO Q6H PRN cough 08/02/24 Unknown History mL oral liquid mirtazapine 7.5 mg tablet 7.5 mg PO QHS appetite 08/02/24 07/31/24 History albuterol sulfate 1.25 mg/3 mL 1.25 mg (3 mL) inhalation Q4H PRN 08/03/24 Unknown Rx solution for nebulization Dyspnea, wheezing #90 mL ipratropium 0.5 mg-albuterol 3 mg 3 ml inhalation Q6H COPD, Lung 08/03/24 Unknown Rx (2.5 mg base)/3 mL nebulization mass #180 mL soln oxycodone 5 mg tablet 5 mg PO Q4H PRN PRN Pain Score 08/03/24 Unknown Rx 4-10 5 days #20 tabs sennosides 8.6 mg-docusate sodium 1 tab-cap PO BID PRN constipation 08/03/24 Unknown Rx 50 mg tablet (Senna Plus) #30 tabs nicotine (polacrilex) 2 mg buccal 2 mg buccal Q8H PRN nicotine 08/09/24 Unknown Rx lozenge cravings #72 ea pulse oximetry 1 unit OTHER .1 PRN shortness of 08/09/24 Unknown Rx breath #1 unit dexamethasone 4 mg tablet 4 mg PO QDAY #30 tabs 08/29/24 Unknown Rx Allergy/AdvReac Type Severity Reaction Status Date / Time aspirin Allergy Swelling Verified 09/26/24 05:25 ibuprofen Allergy Hives Verified 09/26/24 05:25 Family History Father Myocardial infarction CVA (cerebral vascular accident) Mother Brain aneurysm CVA (cerebral vascular accident) Grandmother Cancer Surgical History Encounter for Essure implantation History of tonsillectomy Social History Smoking Status: Former smoker Tobacco: How many years used: 50 alcohol intake: never substance use type: marijuana caffeine: Yes what type of physical activity do you participate in: walking seatbelt use: always do you feel safe at home: Yes additional social history: Phil- Disabled Patient stays at home ROS ROS ED Constitutional Constitutional ED: Reports other Details: Positive fatigue ; Denies chills or fever(s) Eyes Eyes: Denies change in vision ENT ENT ED: Denies rhinorrhea Cardiovascular Cardiovascular: Reports chest pain, palpitations and racing heartbeat Respiratory/Chest Respiratory/Chest: Reports cough, dyspnea and other Details: Positive hemoptysis Gastrointestinal Gastrointestinal: Reports nausea; Denies melena Musculoskeletal Musculoskeletal: Reports arthralgias, back pain, myalgias and neck pain Neurologic Neurologic: Reports headache(s) Psychiatric Psychiatric: Reports anxiety and depression Allergic/Immunologic Allergic/Immunologic ED: Denies mouth swelling or tongue swelling EXAM Physical Exam Const Vital Signs: 09/26/24 05:26 09/26/24 05:29 09/26/24 05:32 Temperature 97.7 F L 97.7 F L Temperature Source Oral Oral Pulse Rate 134 H 133 H Respiratory Rate 27 H 25 H Respiratory Effort Short of Breath Respiratory Depth Deep Respiratory Pattern Tachypnea Blood Pressure 131/98 H 126/86 H Blood Pressure Mean 109 99 Pulse Ox 95 94 Oxygen Delivery Method Nasal Cannula Nasal Cannula Nasal Cannula Oxygen Flow Rate (L/min) 6 6 Fraction of Inspired Oxygen (FIO2) 6 09/26/24 06:25 09/26/24 06:46 09/26/24 07:00 Temperature Temperature Source Pulse Rate 127 H 124 H 124 H Respiratory Rate 25 H 18 Respiratory Effort Respiratory Depth Respiratory Pattern Blood Pressure 128/94 H 132/91 H 144/98 H Blood Pressure Mean 105 104 113 Pulse Ox 88 96 96 Oxygen Delivery Method Nasal Cannula High Flow High Flow Oxygen Flow Rate (L/min) 6 8 8 Fraction of Inspired Oxygen (FIO2) Positive well developed and cachectic Constitutional Narrative: Patient is in mild to moderate respiratory distress with tachypnea and accessory muscle use She appears pale and cachectic consistent with her history of metastatic cancer General Appearance ED: well developed, cachectic and pallor Nutritional Appearance: cachectic HEENT Reports dry mucous membranes HEENT Narrative: No tongue or lip swelling no oral lesions no airway edema or compromise No dried blood or active bleeding noted in the posterior pharynx Mouth ED: Yes dry mucous membranes Mouth: dry mucous membranes Eyes PERRL and EOMs intact bilaterally General Eye ED: Yes pale conjunctiva; Negative for scleral icterus Neck supple and no JVD Neck Narrative: No crepitance palpated Chest Wall Chest Narrative: Diffuse pain on palpation of the chest wall no obvious bony deformity or crepitance or subcu emphysema Resp Resp Narrative: Patient is tachypneic with accessory muscle use and dyspnea with speech. Breath sounds are severely diminished throughout with diffuse inspiratory and expiratory wheezing as well as rhonchi and crackles. Cardio regular rhythm Rate: tachycardic GI non-distended and no masses GI Narrative: Abdomen is soft and nondistended with hypoactive bowel sounds There is mild diffuse pain with palpation Auscultation: hypoactive bowel sounds Palpation: soft Extremity normal to inspection Extremity Narrative: No asymmetric edema no pitting edema negative Homans' sign bilaterally Neuro oriented x3 and CN's II-XII intact bilaterally Sensorium / Orientation: alert Psych Psych Narrative: Patient has a depressed/flat affect Mood & Affect: depressed Skin Skin Narrative: Skin is pale and cool with capillary refill at 3 seconds General Skin Exam: pallor MDM MDM MDM Narrative Medical decision making narrative: Patient arrived to the ER with need for increase in mental oxygen to keep her pulse ox greater than 90%. With this she is tachycardic and tachypneic indicating she is developed acute on chronic respiratory failure. We discussed potential blood work and CTA based on her history of metastatic lung disease and hemoptysis. However the patient and significant other indicates she is a DNR comfort care only and states they do not want any testing performed. Patient is simply looking for improved comfort measures as her treatment at home is not working. Secondary to this an IV was established she was given Dilaudid Ativan Zofran and fentanyl. She was placed on submental oxygen at 8 L. With this she does report improvement of symptoms. She is requesting potential hospice placement because of her worsening symptoms and therefore they will contact. They state they will evaluate the patient in the ER. At this time their evaluation is still pending. I do feel patient will be proper fit for placement at their facility but if it is not possible then she potentially can stay in the hospital for continued comfort care as her treatment at home is not providing significant improvement. Patient will be signed out to the day doctor/Dr. 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 Discharge Plan Triage Chief Complaint: Shortness of Breath ED Provider: Bobo Villalpando Dx/Rx/DC Orders Clinical Impression: COPD (chronic obstructive pulmonary disease), Metastatic cancer, Hemoptysis, Acute on chronic respiratory failure Prescriptions: No Action pulse oximetry 1 unit OTHER .1 PRN (Reason: shortness of breath) Qty: 1 0RF nicotine (polacrilex) 2 mg lozenge 2 mg buccal Q8H PRN (Reason: nicotine cravings) Qty: 72 2RF dexamethasone 4 mg tablet 4 mg PO QDAY Qty: 30 0RF diazepam 5 MG tablet 2.5 mg PO BID Patient Comments: OCCASIONALLY TAKES 5MG PER DOSE, PCPC ATTEMPTING TO WEAN PT mirtazapine 7.5 mg tablet 7.5 mg PO QHS albuterol sulfate 90 mcg/actuation HFA aerosol inhaler 2 puff INHALATION Q4H PRN PRN (Reason: sob) codeine-guaifenesin 10-100 mg/5 mL liquid 10 ml PO Q6H PRN (Reason: cough) ipratropium-albuterol 0.5 mg-3 mg(2.5 mg base)/3 mL Solution For Nebulization 3 ml inhalation Q6H Qty: 180 0RF oxycodone 5 mg Tablet 5 mg PO Q4H PRN PRN (Reason: Pain Score 4-10) 5 Days Qty: 20 0RF sennosides-docusate sodium [Senna Plus] 8.6-50 mg tablet 1 tab-cap PO BID PRN (Reason: constipation) Qty: 30 0RF albuterol sulfate 1.25 mg/3 mL solution for nebulization 1.25 mg inhalation Q4H PRN (Reason: Dyspnea, wheezing) Qty: 90 0RF Primary Care Provider: Smith Espinosa Chi Referrals: Smith Espinosa Chi, MD [Primary Care Provider] - Print Language: Slovak
--- NOTE | 2024-09-26 07:53 | ED.RN ---
CALLED HOSPICE AT 0745 LOOKING INTO AN UPDATED ETA AND WILL CALL BACK
[2024-09-26] MEDS: Glycopyrrolate 0.2 MG/ML Vial 0.1 MG IV (10:30)
== END 2024-09-26 11:21 | disposition hospice, inpatient (51) ==
PROVIDERS: Emergency Provider Emergency Medicine; PCP Family Medicine Geriatric Medicine; Visit Provider Emergency Medicine
DX: J44.9 Chronic obstructive pulmonary disease, unspecified (principal); C78.00 Secondary malignant neoplasm of unspecified lung; J96.20 Acute and chronic respiratory failure, unspecified whether with hypoxia or hypercapnia; Z87.891 Personal history of nicotine dependence
CPT/HCPCS: 96374; 96375; 96376; 99284; A4216; J2405